=== PATIENT | male | born 1960 | race Caucasian/White ===

== ENCOUNTER 2018-07-13 14:58 | Inpatient (IN) | payer MEDICAID, OTHER ==
[~2018-07-13] VITALS: Ht 172.7 cm; Wt 85.7 kg
[~2018-07-13 14:58] MED LIST: ENAL5TAB20 PO; IND25 PO; METO-50 PO
[2018-07-13 15:05] VITALS: BP 151/96
--- NOTE | 2018-07-13 15:13 | NUR ---
TRIAGED TO LOBBY. PT VSS, NOT IN DISTRESS.
--- NOTE | 2018-07-13 17:09 | NUR ---
PATIENTS VITAL SIGNS TAKEN. PATIENT IN NO DISTRESS. COVERSING WELL.EXPLAINED PATIENT THE WAIT.WITH UNDERSTANDING
--- NOTE | 2018-07-13 18:15 | NUR ---
PATIENT PRESENTS TO ED WITH C/O LEFT UPPER EXTREMITY PAIN "DAYS" PT SEEN IN [facility] DX GOUT BUT REQUEST SECOND OPINION---DENIES RECENT INJURY +2 REDIAL PULSE <3 SEC CAP REFILL---- DENIES N/V/D; SKIN IS PINK/WARM/DRY; AAOX4 WITH EVEN AND STEADY GAIT; LUNGS CLEAR BL; HR EVEN AND REGULAR; PT DENIES ANY FEVER, CP, SOB, OR COUGH AT THIS TIME; PATIENT STATES PAIN OF 8/10 AT THIS TIME; VSS; PATIENT POSITIONED FOR COMFORT; HOB ELEVATED; BEDRAILS UP X2; BED DOWN. ER MD MADE AWARE OF PT STATUS.
--- NOTE | 2018-07-13 18:23 | NUR ---
----WARMER VS LUE ON PALPATION, TENDER WITH SLIGHTEST MOVEMENTS, VEINS DISTENDED DENIES RECENT INJURY---NO ABSCESS OR OBVIOUS CELLULITIS NOTED MD NOTIFIED
--- NOTE | 2018-07-13 18:27 | NUR ---
ULTRASOUND NOTIFIED OF VERBAL ORDER FOR ULTRASOUND ANAT
[2018-07-13] MEDS ORDERED: MORPHINE SULFATE 4 MG/ML SYR IM ONE (18:40)
[2018-07-13] MEDS ORDERED: MORPHINE SULFATE 4 MG/ML SYR IVP ONE (18:50)
--- NOTE | 2018-07-13 18:53 | NUR ---
CXR AT BEDSIDE
[2018-07-13] MEDS ORDERED: NACL 0.9% 1,000 ML IV ONE ×3 (18:55→21:00)
--- NOTE | 2018-07-13 19:01 | NUR ---
RT AT BEDSIDE , ABG
--- NOTE | 2018-07-13 19:13 | NUR ---
US AT BEDSIDE
[2018-07-13 19:22] LABS: BASOPHILS # (AUTO) 0.1 K/uL (0.00-0.22); BASOPHILS % (AUTO) 0.4 % (0.0-2.0); EOSINOPHILS # (AUTO) 0.1 K/uL (0-0.4); EOSINOPHILS % (AUTO) 0.6 % (0.0-4.0); HEMATOCRIT 43.5 % (36-52); HEMOGLOBIN 14.6 g/dL (12.0-18.0); LYMPHOCYTES # (AUTO) 1.6 K/uL (2.0-11.5); LYMPHOCYTES % (AUTO) 12.6 % (20.5-51.1); MEAN CORPUSCULAR HEMOGLOBIN 29 pg (27-31); MEAN CORPUSCULAR HGB CONC 34 g/dL (33-37); MEAN CORPUSCULAR VOLUME 86.9 fL (80-94); MONOCYTES # (AUTO) 1.2 K/uL (0.8-1.0); MONOCYTES % (AUTO) 9.3 % (1.7-9.3); NEUTROPHILS # (AUTO) 9.5 K/uL (1.8-7.7); NEUTROPHILS % (AUTO) 77.1 % (42.2-75.2); PLATELET COUNT (AUTO) 217 K/uL (140-450); RED CELL DISTRIBUTION WIDTH 14.3 % (11.6-13.7); WHITE BLOOD COUNT (AUTO) 12.4 K/uL (4.8-10.8)
[2018-07-13 19:35] LABS: ANION GAP 18.1 (8-16); CARBON DIOXIDE 21.8 mmol/L (21-32); POTASSIUM 3.9 mmol/L (3.5-5.1); PROTHROMBIN TIME 10.3 secs (10.8-13.4)
[2018-07-13 19:41] LABS: ALBUMIN 3.6 g/dL (3.4-5.0); TOTAL BILIRUBIN 0.7 mg/dL (0.0-1.0)
--- NOTE | 2018-07-13 20:28 | NUR ---
URINE COLLECTED AND PLACED IN APPROPRIATE CONTAINER
[2018-07-13] MEDS ORDERED: ACETAMINOPHEN 325 MG TAB PO ONE (20:45)
--- NOTE | 2018-07-13 20:45 | NUR ---
PATIENT STATES HE IS IN PAIN, DR SWANSON MADE AWARE, WILL CONTINUE TO MONITOR
[2018-07-13 20:59] LABS: APPEARANCE,URINE CLEAR (CLEAR); BILIRUBIN,URINE NEGATIVE (NEGATIVE); BLOOD, URINE NEGATIVE (NEGATIVE); COLOR,URINE YELLOW (YELLOW); LEUKOCYTE ESTERASE ,URINE NEGATIVE (NEGATIVE); NITRITE, URINE NEGATIVE (NEGATIVE); UGLUCOSE TRACE (NEGATIVE)
--- NOTE | 2018-07-13 21:14 | NUR ---
DR SWANSON AT BEDSIDE
[2018-07-13] MEDS ORDERED: VANCOMYCIN 1,000 MG in DEXTROSE 5% 250 ML IV ONE (21:20)
--- NOTE | 2018-07-13 21:24 | NUR ---
BRIANA NOT LOADED IN PYXIS, CALLED HOUSE SUP, MADE AWARE, WILL BRING RX TO ER
[2018-07-13] MEDS ORDERED: VANCOMYCIN 1,000 MG VIAL ONE (21:41)
[2018-07-13] MEDS ORDERED: ONDANSETRON 4 MG/2 ML VIAL IM/IVP PRN (22:05)
[2018-07-13] MEDS ORDERED: DOCUSATE SODIUM 100 MG GELCAP PO PRN (22:05)
[2018-07-13] MEDS ORDERED: HYDROcodone/APAP 7.5/325 MG 1 TAB PO PRN (22:05)
[2018-07-13] MEDS ORDERED: ACETAMINOPHEN 325 MG TAB PO PRN (22:05)
[2018-07-13] MEDS ORDERED: MORPHINE SULFATE 2 MG/ML SYR IVP PRN (22:05)
--- NOTE | 2018-07-13 22:18 | NUR ---
ADMITING PHYSCIAN AT BEDSIDE
[2018-07-13] MEDS ORDERED: VANCOMYCIN PER PHARMACY MC PRN (22:35)
[2018-07-13 22:44] LABS: BARBITURATE, URINE NEG. ng/ml (NEG <=200); BENZODIAZEPINE, URINE NEG. ng/mL (NEG <=200); CANNABINOID, URINE NEG. ng/mL (NEG <=50); COCAINE, URINE NEG. ng/mL (NEG <=300); OPIATE, URINE NEG. ng/mL (NEG <=2000); PHENCYCLIDINE SCREEN,URINE NEG. ng/mL (NEG <=25)
[2018-07-13 22:53] LABS: CHOL/HDL RATIO 5.2 (1-4.5); FREE T4 (FREE THYROXINE) 0.97 ng/dL (0.76-1.46); PHOSPHORUS 2.7 mg/dL (2.5-4.9); THYROID STIMULATING HORMONE 0.84 uIU/mL (0.34-3.74)
[2018-07-13] MEDS ORDERED: KETOROLAC 30 MG/ML VIAL IVP ONE (23:20)
[2018-07-13] MEDS ORDERED: ALLOPURINOL 100 MG TAB PO ONE (23:20)
[2018-07-13] MEDS ORDERED: KETOROLAC 15 MG/ML VIAL IVP PRN (23:20)
--- NOTE | 2018-07-13 23:20 | NUR ---
RECEIVED BEDSIDE REPORT FROM LEARNING DISABILITIES SPECIALIST. PT IS AAOX4. ON ROOM AIR. RESPIRATIONS ARE EQUAL AND UNLABORED. PT WITH IV ON RAC 20G VANCO INFUSING. SKIN INTACT. PT LEFT ARM PAIN. ARM CAP REFILL<2SEC. WARM TO THE TOUCH. PT CAN MOVE ARM AND SENSATION INTACT. LUNG SOUNDS ARE CLEAR. B/P 163/112 HR 96, 100% RA, RR 14. PLAN OF CARE DISCUSSED WITH PT. CALL LIGHT WITHIN REACH.
--- NOTE | 2018-07-13 23:23 | NUR ---
Patient will be admitted to care of DR AYALA . Admited to TELE . Will go to room 126A. Belongings list completed. Report to AMA.
[2018-07-13] MEDS ORDERED: ENALAPRIL 10 MG TAB PO ONE (23:50)
--- NOTE | 2018-07-13 23:56 | NUR ---
DUE MEDICATIONS GIVEN. PT TOLERATED WELL. PT CLEANED AND CHANGED INTO NEW GOWN. CALL LIGHT WITHIN REACH
[2018-07-14] VITALS: BP 163/112
[2018-07-14] MEDS ORDERED: methylPREDNISolone SS 40 MG/ML VIAL IVP ONE
--- NOTE | 2018-07-14 00:27 | NUR ---
PT EATING COMFORTABLY IN BED. NO S/S OF DISTRESS. CALL LIGHT WITHIN REACH.
--- NOTE | 2018-07-14 01:58 | NUR ---
PT SLEEPING COMFORTABLY IN BED. NO S/S OF DISTRESS. SAFETY MEASURES ARE IN PLACE. CALL LIGHT WITHIN REACH.
[2018-07-14 04:00] VITALS: BP 137/81
--- NOTE | 2018-07-14 04:25 | NUR ---
VITAL SIGNS ARE STABLE. ASSISTED PT TO RESTROOM. ALL NEEDS MET AT THIS TIME. CALL LIGHT WITHIN REACH.
[2018-07-14 06:28] LABS: ANION GAP 15.7 (8-16); CARBON DIOXIDE 22.2 mmol/L (21-32); POTASSIUM 3.9 mmol/L (3.5-5.1)
--- NOTE | 2018-07-14 07:21 | NUR ---
GAVE BEDSIDE REPORT TO DAY SHIFT RN. PT ENDORSED IN STABLE CONDITION.
--- NOTE | 2018-07-14 07:22 | NUR ---
RECEIVED BEDSIDE REPORT FROM CATEGORY DEVELOPMENT ANALYST NURSE. PATIENT IS AWAKE, ALERT AND ORIENTEDX4. NO SIGNS OF DISTRESS ON RA. SKIN IS INTACT. IV ON R AC 20G INFUSING NS AT 60. CLEAN, DRY AND INTACT. FALL RISK PROTOCOL IN PLACE D/T WEAKNESS. WALKS W CANE AT HOME. BED IN LOW POSITION. PATIENT IS CONTINENT. URINAL AT BEDSIDE. CALL LIGHT WITHIN REACH. WILL CONTINUE TO MONITOR THE PATIENT
[2018-07-14] MEDS ORDERED: LACTULOSE 20 GM/30 ML UDC PO SCH (07:32)
[2018-07-14 07:36] LABS: BASOPHILS % (AUTO) 0.2 % (0.0-2.0); EOSINOPHILS % (AUTO) 0.1 % (0.0-4.0); HEMATOCRIT 42.3 % (36-52); HEMOGLOBIN 14.4 g/dL (12.0-18.0); LYMPHOCYTES # (AUTO) 0.7 K/uL (2.0-11.5); LYMPHOCYTES % (AUTO) 5.5 % (20.5-51.1); MEAN CORPUSCULAR HEMOGLOBIN 30 pg (27-31); MEAN CORPUSCULAR HGB CONC 34 g/dL (33-37); MEAN CORPUSCULAR VOLUME 87.6 fL (80-94); MONOCYTES # (AUTO) 0.3 K/uL (0.8-1.0); MONOCYTES % (AUTO) 2.6 % (1.7-9.3); NEUTROPHILS # (AUTO) 11.6 K/uL (1.8-7.7); NEUTROPHILS % (AUTO) 91.6 % (42.2-75.2); PLATELET COUNT (AUTO) 203 K/uL (140-450); RED BLOOD CELL COUNT(AUTO) 4.83 MIL/uL (4.20-6.10); WHITE BLOOD COUNT (AUTO) 12.7 K/uL (4.8-10.8)
[2018-07-14 08:00] VITALS: BP 142/83
--- NOTE | 2018-07-14 08:19 | NUR ---
PATIENT HAS BEEN SCREENED AND CATEGORIZED MODERATE NUTRITION RISK. PATIENT WILL BE SEEN WITHIN 3-5 DAYS OF ADMISSION. 07/17/18FABIENNE DEJ[address]
[2018-07-14] MEDS: ALLOPURINOL 300 MG TAB PO SCH (08:37)
[2018-07-14] MEDS: METOPROLOL 50 MG TAB PO SCH ×2 (08:38→20:32)
[2018-07-14] MEDS: INDOMETHACIN 25 MG CAP PO SCH ×2 (08:39→20:33)
[2018-07-14] MEDS: ENALAPRIL 5 MG TAB PO SCH ×2 (08:39)
[2018-07-14] MEDS: LACTOBACILLUS RHAMNOSUS GG 1 EACH CAP PO SCH (08:39)
--- NOTE | 2018-07-14 08:42 | NUR ---
ADMINISTERED MEDS. PATIENT TOLERATED WELL. EDUCATED PATIENT ON SIDE EFFECTS. PATIENT VERBALIZED UNDERSTANDING. CALL LIGHT WITHIN REACH. PATIENT IS ABLE TO MAKE NEEDS KNOWN.
[2018-07-14] MEDS ORDERED: METOPROLOL 50 MG TAB PO SCH (09:00)
--- NOTE | 2018-07-14 10:00 | NUR ---
PATIENT AMBULATED TO THE RESTROOM W ASSISTANCE. HE SAID HE HAD A SMALL BM. PATIENT BACK INTO BED. CALL LIGHT WITHIN REACH. WILL CONTINUE TO MONITOR
--- NOTE | 2018-07-14 11:49 | NUR ---
PATIENT IS SLEEPING. NO SIGNS OF DISTRESS. WILL CONTINUE TO MONITOR THE PATIENT
[2018-07-14 12:00] VITALS: BP 168/88
--- NOTE | 2018-07-14 12:30 | NUR ---
DR BRAVO IS AWARE OF B/P 168/88 HR 71.
--- NOTE | 2018-07-14 13:30 | NUR ---
PATIENT AMBULATED TO THE RESTROOM W ASSISTANCE. WILL CALL FOR ASSISTANCE BACK TO THE BED.
--- NOTE | 2018-07-14 14:26 | NUR ---
PATIENT STATES HE FEELS LIKE HIS LEGS ARE WEAKER AND ITS HARD TO WALK NOW. WILL TELL DR BRAVO. PATIENT CURRENTLY MOVING LEGS AT THIS TIME.
--- NOTE | 2018-07-14 14:43 | NUR ---
DR BRAVO SAID SHE WILL ORDER PT FOR HIM. PATIENT IS AWARE
--- NOTE | 2018-07-14 15:24 | NUR ---
PATIENT LAYING IN BED. NO SIGNS OF DISTRESS. WILL CONTINUE TO MONITOR THE PATIENT.
[2018-07-14 16:00] VITALS: BP 144/83
--- NOTE | 2018-07-14 16:52 | NUR ---
PATIENT LAYING IN BED. REMOVED TELE MONITOR, PATIENT NOW ON MED SURGE. WILL CONTINUE TO MONITOR THE PATIENT
[2018-07-14] MEDS ORDERED: ATORVASTATIN 20 MG TAB PO SCH (17:00)
[2018-07-14] MEDS: NACL 0.9% 1,000 ML IV SCH ×2 (17:44)
--- NOTE | 2018-07-14 17:48 | NUR ---
ADMINISTERED REY MED AND IVF. PATIENT EDUCATED ON SIDE EFFECTS. TOLERATED WELL. NO SIGNS OF DISTRESS. ABLE TO MAKE NEEDS KNOWN. WILL CONTINUE TO MONITOR THE PATIENT
--- NOTE | 2018-07-14 19:04 | NUR ---
GAVE BEDSIDE REPORT TO TRACTOR TRAILER TECHNICIAN NURSE. PATIENT ENDORSED IN STABLE CONDITION
--- NOTE | 2018-07-14 19:10 | NUR ---
RECEIVED BEDSIDE REPORT FROM NERI GOYAL. PT IS AAO X4. ON ROOM AIR. RESPIRATIONS ARE EQUAL AND UNLABORED. IV ON R AC 20G NS INFUSING AT 60. L ARM SWELLING AND WARM TO THE TOUCH. PT ABLE TO MOVE HAND BUT HAS PAIN WITH MOVEMENT. ARM IS SWOLLEN NON PITTING. OTHERWISE SKIN INTACT. PT USES URINAL. ON FALL PRECAUTION. PLAN OF CARE DISCUSSED. CALL LIGHT WITHIN REACH. BED ALARM ON AND LOWEST POSITION. WILL CONTINUE TO MONITOR.
--- NOTE | 2018-07-14 20:33 | NUR ---
B/P 143/80 HR 70. LOPRESSOR ADMINISTERED PER ORDERS. ALL DUE MEDICATIONS GIVEN. PT TOLERATED WELL. ALL NEEDS MET AT THIS TIME.
--- NOTE | 2018-07-14 21:40 | NUR ---
ASSISTED PT TO RESTROOM. GAIT IS STEADY DENIES ANY SOB. ALL NEEDS MET AT THIS TIME. CALL LIGHT WITHIN REACH.
--- NOTE | 2018-07-14 23:00 | NUR ---
GAVE BEDSIDE REPORT TO BILLY KIRAN. PT ENDORSED IN STABLE CONDITION.
--- NOTE | 2018-07-14 23:15 | NUR ---
RECEIVED REPORT FROM BILLY REDD.PT'S CONDITION IS STABLE .IVF IS IN PROGRESS.CALL LIGHT IN REACH.NO C/O PAIN NOW WILL CONTINUE MONITORING.
[2018-07-15] VITALS: BP 135/80
[2018-07-15] MEDS ORDERED: INFLUENZA VIRUS VACCINE QUAD 0.5 ML SYR IMVAC PRN (03:10)
--- NOTE | 2018-07-15 05:41 | NUR ---
SLEPT WELL.NO S/S OF ANY DISTRESS NOTED.CALL LIGHT WITHIN REACH.IVF IS IN PROGRESS.NO C/O PAIN AT PRESENT TIME.
[2018-07-15 06:51] LABS: BASOPHILS % (AUTO) 0.2 % (0.0-2.0); EOSINOPHILS # (AUTO) 0.1 K/uL (0-0.4); EOSINOPHILS % (AUTO) 0.7 % (0.0-4.0); HEMATOCRIT 38.6 % (36-52); HEMOGLOBIN 13.3 g/dL (12.0-18.0); LYMPHOCYTES # (AUTO) 2.1 K/uL (2.0-11.5); LYMPHOCYTES % (AUTO) 16.9 % (20.5-51.1); MEAN CORPUSCULAR HEMOGLOBIN 30 pg (27-31); MEAN CORPUSCULAR HGB CONC 35 g/dL (33-37); MEAN CORPUSCULAR VOLUME 85.9 fL (80-94); MONOCYTES # (AUTO) 0.7 K/uL (0.8-1.0); MONOCYTES % (AUTO) 5.9 % (1.7-9.3); NEUTROPHILS # (AUTO) 9.4 K/uL (1.8-7.7); NEUTROPHILS % (AUTO) 76.3 % (42.2-75.2); PLATELET COUNT (AUTO) 181 K/uL (140-450); RED BLOOD CELL COUNT(AUTO) 4.49 MIL/uL (4.20-6.10); RED CELL DISTRIBUTION WIDTH 14.7 % (11.6-13.7); WHITE BLOOD COUNT (AUTO) 12.3 K/uL (4.8-10.8)
[2018-07-15 07:06] LABS: MAGNESIUM 1.8 mg/dL (1.8-2.4); PHOSPHORUS 3.2 mg/dL (2.5-4.9)
[2018-07-15] MEDS: NACL 0.9% 1,000 ML IV SCH (07:22)
--- NOTE | 2018-07-15 07:25 | NUR ---
RECEIVED REPORT FROM PM NURSE . PT ADMITTED FOR LFT HAND CELLULITIS. HAS RT HAND IV ACCESS , NS IVF INFUSING WELL 60 ML/HR. NO OPEN WOUND. VISITED PT AT HIS BEDSIDE. DENIES ANY PAIN AT THIS TIME. INTRODUCED SELF AND UPDATED BOARD. NO SIGN OF DISTRESS NOTED. CALLLIGHT WITHIN PT REACH. INFORMED TO USE CALL LIGHT FOR ANY HELP. WILL CONTINUE TO MONITOR PT.
[2018-07-15 08:00] VITALS: BP 157/103
[2018-07-15 08:12] LABS: ANION GAP 14.4 (8-16); CARBON DIOXIDE 22.6 mmol/L (21-32); CREATININE 0.8 mg/dL (0.7-1.3)
[2018-07-15] MEDS ORDERED: MORPHINE SULFATE 2 MG/ML SYR IVP PRN (08:12)
[2018-07-15] MEDS ORDERED: ENALAPRIL 10 MG TAB PO SCH (08:12)
[2018-07-15] MEDS: INDOMETHACIN 25 MG CAP PO SCH (08:39)
[2018-07-15] MEDS: ALLOPURINOL 300 MG TAB PO SCH (08:41)
[2018-07-15] MEDS: LACTOBACILLUS RHAMNOSUS GG 1 EACH CAP PO SCH (08:42)
[2018-07-15] MEDS: METOPROLOL 50 MG TAB PO SCH (08:43)
--- NOTE | 2018-07-15 08:52 | NUR ---
ADMINISTERED MEDS TO PT BY STUDENT NURSE AT THE BEDSIDE. PT OKAY WITH IT. TOLERATED MEDS WELL. NO SIGN OF DISTRESS NOTED FIXED HIS IV , INFUSING WELL. NO SIGN OF DISTRESS NOTED. WILL CONTINUE TO MONITOR PT.
[2018-07-15] MEDS ORDERED: ALLO100T21 PO (10:10)
[2018-07-15] MEDS ORDERED: ATOR10TA PO (11:05)
--- NOTE | 2018-07-15 12:45 | NUR ---
PT PROVIDED WITH THE DISCHARGE INSTRUCTION AND THE PAPER WORK. PTIveth SMITH PROVIDED WITH THE PAPER WORK FOR HIS PCP PROVIDED BY RESIDENT. EDUCATED PT ON EATING FOOD LOW IN PROTEIN. LITERATURE PROVIDED . PT VERBALIZED UNDERSTANDING. STABLE AND ABLE TO COMMUNICATE. PT COMFORTABLE. WILL CONFIRM THE DATE OF APPOINT BEFORE [PT LEAVES. PT ADMINISTERED FLU SHOT TODAY ORDERED.
--- NOTE | 2018-07-15 14:00 | NUR ---
PT WENT HOME WITH ALL HIS BELONGINGS ANS THE DISCHARGE PACKET. PT STABLE AND ABLE TO COMMUNICATE , AMBULATE GOOD.
== END 2018-07-15 13:30 | disposition home or self-care (01) | DRG 554 ==
LOC: MED 14:58 → MMU 22:02
PROVIDERS: ADMIT General Practice; ATTEND General Practice
DX: M10.9 Gout, unspecified (principal); E78.2 Mixed hyperlipidemia; I10 Essential (primary) hypertension; K72.90 Hepatic failure, unspecified without coma; Z79.899 Other long term (current) drug therapy; Z88.6 Allergy status to analgesic agent; Z83.3 Family history of diabetes mellitus; Z82.49 Family history of ischemic heart disease and other diseases of the circulatory system; Z23 Encounter for immunization
CPT/HCPCS: 36415; 36600; 71045; 73110; 80048; 80053; 80305; 81003; 82140; 82550; 82553; 82803; 83036; 83605; 83735; 83874; 83880; 84100; 84439; 84443; 84484; 84550; 85025; 85610; 85730; 87040; 87081; 87086; 93005; 93922; 93930; 93971; 96361; 96365; 96375; 97116; 99285; J1885; J2270; J2920; J3370; J7030; Q0092

== ENCOUNTER 2018-08-10 23:27 | Inpatient (IN) | payer OTHER ==
[~2018-08-10] VITALS: Ht 172.7 cm; Wt 84.8 kg
[~2018-08-10 23:27] MED LIST changes: +ALLO100T21 PO; +ATOR10TA PO
[2018-08-10 23:33] VITALS: BP 177/95
--- NOTE | 2018-08-10 23:39 | NUR ---
AMBULATED TO ER BED 2
--- NOTE | 2018-08-10 23:57 | NUR ---
PT PRESENTS TO ED WITH C/P INTERMITTENT CHEST PAIN RADIATING TO LEFT ARM X 2 HOURS, AND WEAKNESS IN LEGS. PT DENIES SOB AT THIS TIME. CARDIAC ASSESSMENT WNL. NO OBVIOUS DISTRESS NOTED. EKG PERFORMED AT BEDSIDE. PT PLACED INTO BED, PENDING MD [place]. HX: HTN, HLD
[2018-08-11] MEDS ORDERED: ASPIRIN 325 MG TAB PO ONE (00:25)
[2018-08-11 00:47] LABS: BASOPHILS % (AUTO) 0.5 % (0.0-2.0); EOSINOPHILS # (AUTO) 0.1 K/uL (0-0.4); EOSINOPHILS % (AUTO) 1.7 % (0.0-4.0); HEMOGLOBIN 14.2 g/dL (12.0-18.0); LYMPHOCYTES # (AUTO) 1.8 K/uL (2.0-11.5); LYMPHOCYTES % (AUTO) 23.8 % (20.5-51.1); MEAN CORPUSCULAR HEMOGLOBIN 30 pg (27-31); MEAN CORPUSCULAR HGB CONC 34 g/dL (33-37); MEAN CORPUSCULAR VOLUME 87.8 fL (80-94); MONOCYTES # (AUTO) 0.5 K/uL (0.8-1.0); MONOCYTES % (AUTO) 7.1 % (1.7-9.3); NEUTROPHILS % (AUTO) 66.9 % (42.2-75.2); PLATELET COUNT (AUTO) 190 K/uL (140-450); RED BLOOD CELL COUNT(AUTO) 4.79 MIL/uL (4.20-6.10); RED CELL DISTRIBUTION WIDTH 14.6 % (11.6-13.7); WHITE BLOOD COUNT (AUTO) 7.5 K/uL (4.8-10.8)
[2018-08-11 01:20] LABS: CREATINE KINASE MB 1.2 ng/mL (0-3.6)
[2018-08-11 01:25] LABS: ANION GAP 13.6 (8-16); CARBON DIOXIDE 26.3 mmol/L (21-32); POTASSIUM 3.9 mmol/L (3.5-5.1)
[2018-08-11 01:26] LABS: ALBUMIN 3.7 g/dL (3.4-5.0)
[2018-08-11] MEDS ORDERED: NITROGLYCERIN 0.4 MG TAB SL ONE (01:45)
--- NOTE | 2018-08-11 01:45 | NUR ---
IV START: R AC 18G, FLUSHED WELL W/O RESISTANCE. NO REDNESS OR SWELLING NOTED. TRANPARENT DRESSING APPLIED. PT TOLERATED WELL.
[2018-08-11] MEDS ORDERED: HEPARIN PER PHARMACY MC STA (01:54)
[2018-08-11] MEDS ORDERED: hePARIN / DEXT 5% PREMIX 250 ML IV ONE (01:55)
[2018-08-11] MEDS ORDERED: LORazepam 2 MG/ML VIAL IM/IVP PRN (02:05)
[2018-08-11] MEDS ORDERED: ACETAMINOPHEN 325 MG TAB PO PRN (02:05)
[2018-08-11] MEDS ORDERED: MORPHINE SULFATE 2 MG/ML SYR IVP PRN (02:05)
[2018-08-11] MEDS ORDERED: HYDROcodone/APAP 5/325 MG 1 TAB TAB PO PRN (02:05)
[2018-08-11] MEDS ORDERED: ONDANSETRON 4 MG/2 ML VIAL IM/IVP PRN (02:05)
[2018-08-11] MEDS ORDERED: ZOLPIDEM 5 MG TAB PO PRN (02:05)
[2018-08-11] MEDS ORDERED: DOCUSATE SODIUM 100 MG GELCAP PO PRN (02:05)
[2018-08-11 02:20] LABS: PROTHROMBIN TIME 10.4 secs (10.8-13.4)
[2018-08-11 02:40] VITALS: BP 152/94
--- NOTE | 2018-08-11 02:40 | NUR ---
ADMITTED A 57M FROM ER. CAME BY CLAYTON . WITH SLIGHT DIFFICULTY AMBULATION. AWAKE,ALERT AND ORIENTED X4. ON TELE MONITOR . PT CAME WITH HEPARIN DRIP INFUSING ON THE RT AC G#18. CLEAR AND PATENT. [place] ORIENTED TO HOSPITAL ROUTINES, BED ON LOW POSITION. SIDE RAILS UP X2, CALL LIGHT AND URINAL WITHIN EASY REACH. PLAN OF CARE DISCUSSED AND VERBALIZED UNDERSTANDING. WILL CONTINUE TO MONITOR.
--- NOTE | 2018-08-11 02:47 | NUR ---
Patient will be admitted to care of DR AYALA. Admited to TELE. Will go to room 105-A. Belongings list completed. Report to JYOTSNA KAISER.
[2018-08-11 02:57] LABS: MAGNESIUM 1.9 mg/dL (1.8-2.4); PHOSPHORUS 4.2 mg/dL (2.5-4.9); THYROID STIMULATING HORMONE 1.82 uIU/mL (0.34-3.74)
[2018-08-11] MEDS ORDERED: NITROGLYCERIN 0.4 MG TAB SL PRN (03:00)
[2018-08-11 03:21] LABS: APPEARANCE,URINE CLEAR (CLEAR); BILIRUBIN,URINE NEGATIVE (NEGATIVE); BLOOD, URINE 1+ (NEGATIVE); COLOR,URINE YELLOW (YELLOW); LEUKOCYTE ESTERASE ,URINE NEGATIVE (NEGATIVE); NITRITE, URINE NEGATIVE (NEGATIVE); PH,URINE 5.5 (5.0-9.0); UGLUCOSE NEGATIVE (NEGATIVE)
[2018-08-11 04:03] LABS: BARBITURATE, URINE NEGATIVE ng/ml (NEG <=200); BENZODIAZEPINE, URINE NEGATIVE ng/mL (NEG <=200); CANNABINOID, URINE NEGATIVE ng/mL (NEG <=50); COCAINE, URINE NEGATIVE ng/mL (NEG <=300); OPIATE, URINE NEGATIVE ng/mL (NEG <=2000); PHENCYCLIDINE SCREEN,URINE NEGATIVE ng/mL (NEG <=25)
[2018-08-11] MEDS ORDERED: INSULIN LISPRO SLIDING SCALE 100 UNITS/ML VIAL SUBQ PRN (04:30)
[2018-08-11] MEDS ORDERED: DEXTROSE 50% 50 ML SYR IVP PRN (04:30)
--- NOTE | 2018-08-11 05:00 | NUR ---
STARTED A NEW IV ACCESS ON THE R RT HAND G#22, CLEAR AND PATENT FOR THE MAIN IVF NS @60 ML /HR.
[2018-08-11] MEDS: NACL 0.9% 1,000 ML IV SCH ×2 (05:05→19:28)
[2018-08-11] MEDS: BLOOD GLUCOSE MONITORING 1 DEV DEV FS SCH ×4 (06:00→20:15)
--- NOTE | 2018-08-11 06:00 | NUR ---
BLOOD SUGAR WAS CHECKED RESULT 103. NO INSULIN NEEDED.
[2018-08-11 06:04] VITALS: BP 128/78
[2018-08-11 06:50] LABS: BASOPHILS % (AUTO) 0.4 % (0.0-2.0); EOSINOPHILS # (AUTO) 0.1 K/uL (0-0.4); EOSINOPHILS % (AUTO) 1.9 % (0.0-4.0); HEMATOCRIT 39.9 % (36-52); HEMOGLOBIN 13.7 g/dL (12.0-18.0); LYMPHOCYTES % (AUTO) 29.4 % (20.5-51.1); MEAN CORPUSCULAR HEMOGLOBIN 30 pg (27-31); MEAN CORPUSCULAR HGB CONC 34 g/dL (33-37); MEAN CORPUSCULAR VOLUME 86.8 fL (80-94); MONOCYTES # (AUTO) 0.5 K/uL (0.8-1.0); MONOCYTES % (AUTO) 7.9 % (1.7-9.3); NEUTROPHILS # (AUTO) 4.2 K/uL (1.8-7.7); NEUTROPHILS % (AUTO) 60.4 % (42.2-75.2); PLATELET COUNT (AUTO) 174 K/uL (140-450); RED CELL DISTRIBUTION WIDTH 14.4 % (11.6-13.7)
--- NOTE | 2018-08-11 07:05 | NUR ---
ENDORSED PT TO AM NURSE BYRNE IN STABLE CONDITION.
--- NOTE | 2018-08-11 07:10 | NUR ---
RECEIVED HAND OFF REPORT FROM ICU MANAGER NURSE PATIENT IS STABLE AND IN NO APPARENT DISTRESS. ALL SAFETY MEASURES ARE IN PLACE. WILL CONTINUE TO MONITOR.
[2018-08-11 07:45] LABS: ANION GAP 9.9 (8-16); CARBON DIOXIDE 24.6 mmol/L (21-32); CREATININE 0.9 mg/dL (0.7-1.3); POTASSIUM 3.5 mmol/L (3.5-5.1)
--- NOTE | 2018-08-11 08:31 | NUR ---
PATIENT HAS BEEN SCREENED AND CATEGORIZED HIGH NUTRITION RISK. PATIENT WILL BE SEEN WITHIN 1-2 DAYS OF ADMISSION. 08/11/18-08/12/[address]
[2018-08-11] MEDS: ALLOPURINOL 100 MG TAB PO SCH (08:40)
[2018-08-11] MEDS: INDOMETHACIN 25 MG CAP PO SCH ×2 (08:40→20:10)
[2018-08-11] MEDS ORDERED: ENALAPRIL 5 MG TAB PO SCH (09:00)
--- NOTE | 2018-08-11 09:15 | NUR ---
FREQUENT ROUNDING PT IS STABLE AND IN NO APPARENT DISTRESS. ASSISTED PT TO BATH ROOM. PT IS BACK IN BED STABLE AND IN NO APPARENT DISTRESS. ALL SAFETY MEASURES ARE IN PLACE. WILL CONTINUE TO MONITOR.
[2018-08-11] MEDS ORDERED: hePARIN / DEXT 5% PREMIX 250 ML IV SCH (10:15)
[2018-08-11] MEDS ORDERED: HEPARIN PER PHARMACY MC PRN (10:25)
[2018-08-11] MEDS: hePARIN / DEXT 5% PREMIX 250 ML IV SCH ×2 (11:47→19:48)
--- NOTE | 2018-08-11 11:54 | NUR ---
PTT 42.5. PT SHOWS NO SIGNS OF BLEEDING OR BRUISING. INCREASED HEPARIN DRIP TO 1150 AND GAVE HEPARIN BOLUS 2200 UNITS. COSIGNED BY CHARGE NURSE. PT IS STABLE AND IN NO APPARENT DISTRESS. FALL RISK PROTOCOL IS IN PLACE. ALL SAFETY MEASURES ARE IN PLACE. WILL CONTINUE TO MONITOR. Addendum: 08/11/18 at 1158 by Ruby Cornelius RN IV PUMP LOCKED PER UNIT MANAGERS REQUEST
[2018-08-11 12:00] VITALS: BP 152/83
[2018-08-11 12:28] LABS: CHOL/HDL RATIO 3.9 (1-4.5)
--- NOTE | 2018-08-11 13:45 | NUR ---
FREQUENT FOUNDING ON PT PT IS STABLE AND IN NO APPARENT DISTRESS. ALL SAFETY MEASURES ARE IN PLACE. WILL CONTINUE TO MONITOR.
--- NOTE | 2018-08-11 14:45 | NUR ---
08/11/18 RD INITIAL ASSESSMENT COMPLETED PLEASE REFER TO NUTRITION ASSESSMENT UNDER CARE ACTIVITY FOR ESTIMATED NUTRITIONAL NEEDS. 1. CONTINUE CARDIAC AND CCHO 60 GM DIET TOLERATED 2. RD PROVIDED EDUCATION FOR HYPERTENSION AND CONSISTENT CARBOHYDRATE COUNT. PT ACCEPTED EDUCATION 3. RD TO FOLLOW-UP 5-7 DAYS, LOW RISK FABIENNE DEJESUS, RD
--- NOTE | 2018-08-11 15:17 | NUR ---
NOTIFIED DR. SHAFFER AND DR. GOMEZ ON CRITICAL ECHO FINDINGS
--- NOTE | 2018-08-11 15:20 | NUR ---
PT IS STABLE NO SIGNS OF BLEEDING. NO SIGNS OF DISTRESS, ALL SAFETY MEASURES ARE IN PLACE. WILL CONTINUE TO MONITOR.
[2018-08-11 16:00] VITALS: BP 149/92
--- NOTE | 2018-08-11 16:58 | NUR ---
FINGER STICK BLOOD GLUCOSE 123. NO INSULIN NEEDED.
--- NOTE | 2018-08-11 19:28 | NUR ---
HAND OFF REPORT GIVEN TO SUPERVISOR SHUTTLE VENEERING NURSE. PT IS STABLE AND IN NO APPARENT DISTRESS. IV FLUSHING AND PATENT. ALL SAFETY MEASURES ARE IN PLACE.
--- NOTE | 2018-08-11 19:29 | NUR ---
RECEIVED PT IN STABLE CONDITION FORM AM NURSE. TELEMETRY PT. AWAKE,ALERT AND ORIENTED X4. NO C/O PAIN NOR DISCOMFORT AT THIS TIME. WITH HEPARIN DRIP INFUSING ON THE RT AC G#18. CLEAR AND PATENT. CORMIER IVF INFUSING ON ANOTHER LINE RT HAND G#22. PLAN OF CARE DISCUSSED AND VERBALIZED UNDERSTANDING. BED ON LOW POSITION. ALARM ON DUE TO WEAKNESS . SIDE RAILS UP X2. CALL LIGHT AND URINAL PLACED WITHIN EASY REACH. INSTRUCTED TO CALL BEFORE GETTING UP TO BATHROOM. WILL CONTINUE TO MONITOR.
--- NOTE | 2018-08-11 19:46 | NUR ---
LAB CALLED FOR CRITICAL PTT 61.9 . PER HEPARIN PROTOCOL NO CHANGE ON THE RATE.
[2018-08-11 20:07] VITALS: BP 157/87
[2018-08-11] MEDS: ATORVASTATIN 20 MG TAB PO SCH (20:10)
[2018-08-11] MEDS: METOPROLOL 50 MG TAB PO SCH (20:10)
--- NOTE | 2018-08-11 20:15 | NUR ---
BLOOD SUGAR WAS CHECKED RESULT 125. NO INSULIN NEEDED. PT HAD SOME SNACK.
--- NOTE | 2018-08-11 21:54 | NUR ---
DR. GOMEZ CAME AND SEEN PT. DISCUSSED ABOUT PT CONDITION. DR. BARNETT,RESIDENT MD ALSO WITH PT. DR. GOMEZ SAID TO DISCONTINUE HEPARIN DRIP.
--- NOTE | 2018-08-11 23:00 | NUR ---
MADE ROUNDS PT IS ASLEEP. NO S/S O ANY DISCOMFORT NOTED.
[2018-08-12 00:12] VITALS: BP 136/82
--- NOTE | 2018-08-12 01:51 | NUR ---
MADE ROUNDS. PT IS ASLEEP. WITH NO S/S OF ANY DISCOMFORT/PAIN NOTED.
[2018-08-12] MEDS: NACL 0.9% 1,000 ML IV SCH ×2 (02:59→12:08)
[2018-08-12 03:30] VITALS: BP 142/88
--- NOTE | 2018-08-12 04:30 | NUR ---
PT SLEPT WELL DURING THE NIGHT. NO DISTRESS NOR PAIN NOTED.
[2018-08-12] MEDS: BLOOD GLUCOSE MONITORING 1 DEV DEV FS SCH ×4 (06:02→21:04)
--- NOTE | 2018-08-12 06:02 | NUR ---
BLOOD SUGAR WAS CHECKED RESULT 92.
--- NOTE | 2018-08-12 07:25 | NUR ---
ENDORSED PT IN STABLE CONDITION TO AM NURSE FOR CONTINUITY OF CARE.
--- NOTE | 2018-08-12 07:30 | NUR ---
RECEIVED HANDOFF REPORT TO BUFFERER NURSE. PT IS AWAKE IN BED. PT IS STABLE AND IN NO APPARENT DISTRESS. ALL SAFETY MEASURES ARE IN PLACE. WILL CONTINUE TO MONITOR.
[2018-08-12 08:00] VITALS: BP 153/91
[2018-08-12 08:04] LABS: BASOPHILS % (AUTO) 0.5 % (0.0-2.0); EOSINOPHILS # (AUTO) 0.1 K/uL (0-0.4); EOSINOPHILS % (AUTO) 1.9 % (0.0-4.0); HEMOGLOBIN 13.2 g/dL (12.0-18.0); LYMPHOCYTES # (AUTO) 1.9 K/uL (2.0-11.5); LYMPHOCYTES % (AUTO) 33.1 % (20.5-51.1); MEAN CORPUSCULAR HEMOGLOBIN 30 pg (27-31); MEAN CORPUSCULAR HGB CONC 35 g/dL (33-37); MEAN CORPUSCULAR VOLUME 87.1 fL (80-94); MONOCYTES # (AUTO) 0.4 K/uL (0.8-1.0); NEUTROPHILS # (AUTO) 3.3 K/uL (1.8-7.7); NEUTROPHILS % (AUTO) 57.5 % (42.2-75.2); PLATELET COUNT (AUTO) 163 K/uL (140-450); RED BLOOD CELL COUNT(AUTO) 4.36 MIL/uL (4.20-6.10); RED CELL DISTRIBUTION WIDTH 14.2 % (11.6-13.7); WHITE BLOOD COUNT (AUTO) 5.7 K/uL (4.8-10.8)
[2018-08-12 08:29] LABS: ANION GAP 12.2 (8-16); CARBON DIOXIDE 25.7 mmol/L (21-32); CREATININE 0.9 mg/dL (0.7-1.3); POTASSIUM 3.9 mmol/L (3.5-5.1)
[2018-08-12 08:39] LABS: MAGNESIUM 1.8 mg/dL (1.8-2.4); PHOSPHORUS 3.1 mg/dL (2.5-4.9)
[2018-08-12] MEDS: ALLOPURINOL 100 MG TAB PO SCH (09:12)
[2018-08-12] MEDS: INDOMETHACIN 25 MG CAP PO SCH ×2 (09:12→21:00)
[2018-08-12] MEDS: ENALAPRIL 10 MG TAB PO SCH (09:13)
--- NOTE | 2018-08-12 09:15 | NUR ---
FREQUENT ROUNDING PT IS STABLE AND IN NO APPARENT DISTRESS ALL SAFETY MEASURES ARE IN PLACE. WILL CONTINUE TO MONITOR.
--- NOTE | 2018-08-12 10:47 | NUR ---
MEDICAL STUDENTS WORKING WITH PATIENT TEACHING HIM PROPER STRETCHING TECHNIQUE FOR LEG STRETCHES
--- NOTE | 2018-08-12 11:20 | NUR ---
FREQUENT ROUNDING PT IS AWAKE IN BED, PT APPEARS STABLE AND IN NO APPARENT DISTRESS. ALL SAFETY MEASURES ARE IN PLACE. IVF IS INFUSING. IV SITE IS PATENT AND SHOWS NO SIGNS OF INFILTRATION OR INFLAMMATION. WILL CONTINUE TO MONITOR.
--- NOTE | 2018-08-12 11:30 | NUR ---
FINGERSTICK GLUCOSE 104 NO INSULIN NEEDED PER SLIDING SCALE. PT APPEARS STABLE AND IN NO APPARENT DISTRESS. ALL SAFETY MEASURES ARE IN PLACE , WILL CONTINUE TO MONITOR.
[2018-08-12 12:00] VITALS: BP 136/88
--- NOTE | 2018-08-12 13:05 | NUR ---
FREQUENT ROUNDING PT IS ASLEEP. NOTABLE CHEST RISE AND FALL. PT APPEARS STABLE AND IN NO APPARENT DISTRESS. ALL SAFETY MEASURES ARE IN PLACE. WILL CONTINUE TO MONITOR.
--- NOTE | 2018-08-12 15:22 | NUR ---
FREQUENT ROUNDING. PT IS ASLEEP, NOTABLE CHEST RISE AND FALL. PT APPEARS STABLE AND IN NO APPARENT DISTRESS. ALL SAFETY MEASURES ARE IN PLACE. IVF IS INFUSING. IV SITE SHOWS NO SIGNS OF INFILTRATION OR INFLAMMATION. WILL CONTINUE TO MONITOR.
[2018-08-12 16:00] VITALS: BP 146/86
--- NOTE | 2018-08-12 16:30 | NUR ---
FINGERSTICK GLUCOSE 109. NO COVERAGE NEEDED PT IS AWAKE IN BED, PT APPEARS STABLE AND IN NO APPARENT DISTRESS. ALL SAFETY MEASURES ARE IN PLACE. WILL CONTINUE TO MONITOR.
--- NOTE | 2018-08-12 18:33 | NUR ---
FREQUENT ROUNDING PT IS STABLE AND IN BED. ASSISTED PT TO BATHROOM. ALL SAFETY MEASURES ARE IN PLACE WILL CONTINUE TO MONITOR. IVF INFUSING IV SITE SHOWS NO SIGNS OF INFILTRATION OR INFLAMMATION
--- NOTE | 2018-08-12 19:36 | NUR ---
ENDORSED PT TO RESEARCH COORDINATOR NURSE PATIENT IS AWAKE IN BED, PT APPEARS STABLE AND IN NO APPARENT DISTRESS. ALL SAFETY MEASURES ARE IN PLACE. NS AT 60 IV SITE IS PATENT AND SHOWS NO SIGN OF INFLAMMATION OR INFILTRATION.
--- NOTE | 2018-08-12 19:37 | NUR ---
RECEIVED REPORT FROM DAY SHIFT NURSE. AAOX4. NO C/O PAIN OR SOB. ON ROOM AIR. SKIN INTACT. IV TO RIGHT AC #18G, NS AT 60 ML/HR INFUSING WELL AND IV RIGHT HAND #22G, SALINE LOCK. DISCUSSES PLAN OF CARE, PT VERBALIZED UNDERSTANDING. SAFETY PRECAUTION IN PLACE. CALL LIGHT WITHIN REACH.
[2018-08-12 20:00] VITALS: BP 150/82
[2018-08-12] MEDS: ATORVASTATIN 20 MG TAB PO SCH (21:00)
[2018-08-12] MEDS: METOPROLOL 50 MG TAB PO SCH (21:00)
--- NOTE | 2018-08-12 21:00 | NUR ---
DUE MEDS GIVEN. PT TOLERATED WELL. BS CHECKED 93.
--- NOTE | 2018-08-12 23:15 | NUR ---
PT WATCHING TV. NO C/O PAIN OR SOB. IVF INFUSING WELL. SAFETY PRECAUTION IN PLACE. CALL LIGHT WITHIN REACH.
[2018-08-13] VITALS: BP 154/88
--- NOTE | 2018-08-13 01:05 | NUR ---
ASSISTED PT TO BATHROOM AND BACK TO BED. DENIES PAIN OR SOB. ALL NEEDS ATTENDED AT THIS TIME.
--- NOTE | 2018-08-13 03:30 | NUR ---
PT SLEEPING BUT EASILY AROUSABLE. RESP EVEN AND UNLABORED. NO S/S PAIN OR DISCOMFORT.
[2018-08-13 04:00] VITALS: BP 151/78
[2018-08-13] MEDS: NACL 0.9% 1,000 ML IV SCH (04:48)
--- NOTE | 2018-08-13 05:30 | NUR ---
BLOOD SUGAR CHECKED 101. NO INSULIN COVERAGE NEEDED. PT DENIES PAIN OR SOB.
[2018-08-13] MEDS: BLOOD GLUCOSE MONITORING 1 DEV DEV FS SCH ×2 (05:58→11:42)
--- NOTE | 2018-08-13 07:23 | NUR ---
ENDORSED PT TO DAY SHIFT NURSE. PT IN STABLE CONDITION.
--- NOTE | 2018-08-13 07:24 | NUR ---
RECEIVED BEDSIDE REPORT FROM MANNEQUIN MOLD MAKER NURSE. PATIENT IS AWAKE,ALERT AND ORIENTED X4. NOT IN DISTRESS ON ROOM AIR. ,AMBULATE WITH ASSIST,FALL RISK PROTOCOL, PATIENT HAS WEAKNESS. SKIN INTACT.R HAND 22G, SL, R AC 18G INFUSING NS AT 60. CLEAN, DRY AND INTACT. ,TELE MONITOR IN PLACE. CONTINENT, URINAL AT BEDSIDE. CALL LIGHT WITHIN REACH. BED IN LOW POSITION .WILL CONTINUE TO MONITOR
[2018-08-13 07:40] LABS: BASOPHILS % (AUTO) 0.5 % (0.0-2.0); EOSINOPHILS # (AUTO) 0.1 K/uL (0-0.4); EOSINOPHILS % (AUTO) 1.4 % (0.0-4.0); HEMATOCRIT 39.8 % (36-52); HEMOGLOBIN 13.9 g/dL (12.0-18.0); LYMPHOCYTES # (AUTO) 1.8 K/uL (2.0-11.5); LYMPHOCYTES % (AUTO) 32.4 % (20.5-51.1); MEAN CORPUSCULAR HEMOGLOBIN 30 pg (27-31); MEAN CORPUSCULAR HGB CONC 35 g/dL (33-37); MEAN CORPUSCULAR VOLUME 86.9 fL (80-94); MONOCYTES # (AUTO) 0.4 K/uL (0.8-1.0); MONOCYTES % (AUTO) 6.8 % (1.7-9.3); NEUTROPHILS # (AUTO) 3.2 K/uL (1.8-7.7); NEUTROPHILS % (AUTO) 58.9 % (42.2-75.2); PLATELET COUNT (AUTO) 178 K/uL (140-450); RED BLOOD CELL COUNT(AUTO) 4.58 MIL/uL (4.20-6.10); RED CELL DISTRIBUTION WIDTH 14.7 % (11.6-13.7); WHITE BLOOD COUNT (AUTO) 5.5 K/uL (4.8-10.8)
[2018-08-13 07:53] LABS: ANION GAP 11.7 (8-16); CARBON DIOXIDE 26.1 mmol/L (21-32); CREATININE 0.9 mg/dL (0.7-1.3); POTASSIUM 3.8 mmol/L (3.5-5.1)
[2018-08-13 07:56] LABS: MAGNESIUM 1.9 mg/dL (1.8-2.4); PHOSPHORUS 2.9 mg/dL (2.5-4.9)
[2018-08-13 08:00] VITALS: BP 147/85
[2018-08-13] MEDS: ALLOPURINOL 100 MG TAB PO SCH (08:44)
[2018-08-13] MEDS: INDOMETHACIN 25 MG CAP PO SCH (08:45)
[2018-08-13] MEDS: ENALAPRIL 10 MG TAB PO SCH (08:45)
--- NOTE | 2018-08-13 08:51 | NUR ---
ADMINISTERED MEDS. PATIENT EDUCATED ON SIDE EFFECTS. PATIENT TOLERATED WELL. WILL CONTINUE TO MONITOR.
--- NOTE | 2018-08-13 10:00 | NUR ---
patient sitting in chair. no signs of distress. call light within reach
--- NOTE | 2018-08-13 11:18 | NUR ---
patient resting in bed. no signs of distress. will continue to monitor
[2018-08-13] MEDS ORDERED: METF500T PO (11:36)
[2018-08-13] MEDS ORDERED: ASPI81EC98 PO (11:38)
--- NOTE | 2018-08-13 11:43 | NUR ---
patient awake ,no signs of distress. will continue to monitor
[2018-08-13 12:00] VITALS: BP 162/96
[2018-08-13] MEDS ORDERED: ENALAPRIL 2.5 MG TAB PO SCH (12:00)
--- NOTE | 2018-08-13 12:10 | NUR ---
ADMINISTERED MEDS. PATIENT TOLERATED WELL. EDUCATED ON SIDE EFFECTS. WILL CONTINUE TO MONITOR
--- NOTE | 2018-08-13 14:00 | NUR ---
PATIENT SITTING IN BED. NO SIGNS OF DISTRESS. WILL CONTINUE TO MONITOR THE PATIENT
--- NOTE | 2018-08-13 15:00 | NUR ---
EDUCATED ON DISEASE PROCESS, ABN S/SX, WHEN TO GO TO THE ER, EDUCATED ON MEDS, MEDS SENT TO PHARMACY, PNA VACCINE NOT A CANDIDATE, FLU HE GOT IN 2019. EDUCATED ON FOLLOW UP W PCP AND TO SEE A USER INTERFACE DESIGNER. IV REMOVED, TIP INTACT. TELE REMOVED. ID BANDS REMOVED. PATIENT GOT A BUS PASS, HE REFUSED TO LET ME CALL FAMILY FOR A RIDE. PATIENT LEFT WALKING IN STABLE CONDITION
== END 2018-08-13 15:00 | disposition home or self-care (01) | DRG 205 ==
LOC: MED 23:27 → MTU 08-11 02:03
PROVIDERS: ADMIT General Practice; ATTEND General Practice
DX: M94.0 Chondrocostal junction syndrome [Tietze] (principal); I21.A1 Myocardial infarction type 2; D68.59 Other primary thrombophilia; I10 Essential (primary) hypertension; E11.65 Type 2 diabetes mellitus with hyperglycemia; E78.2 Mixed hyperlipidemia; N20.0 Calculus of kidney; M10.9 Gout, unspecified; E78.5 Hyperlipidemia, unspecified; Z88.8 Allergy status to other drugs, medicaments and biological substances; F31.9 Bipolar disorder, unspecified; Z83.3 Family history of diabetes mellitus; Z82.49 Family history of ischemic heart disease and other diseases of the circulatory system
CPT/HCPCS: 36415; 71045; 76770; 80048; 80053; 80305; 81003; 82550; 82553; 82948; 83036; 83690; 83735; 83880; 84100; 84134; 84443; 84484; 85025; 85610; 85730; 87081; 93005; 96374; 96376; 99291; J1644; J1815; J7030; Q0092

== ENCOUNTER 2018-08-13 17:17 | Emergency (ER) | payer SELFPAY ==
[~2018-08-13] VITALS: Ht 172.7 cm; Wt 85.0 kg
[~2018-08-13 17:17] MED LIST changes: +ASPI81EC98 PO; +METF500T PO
[2018-08-13 17:25] VITALS: BP 161/102
--- NOTE | 2018-08-13 17:30 | NUR ---
PT AMBULATED TO ED BED 09
--- NOTE | 2018-08-13 17:45 | NUR ---
PATIENT PRESENTS TO ED WITH HIGH BP . PT STATES D/C FORM [facility] TODAY, NOT REFILL MEDS YET. DENIES N/V/D; SKIN IS PINK/WARM/DRY; AAOX4 WITH EVEN AND STEADY GAIT; LUNGS CLEAR BL; HR EVEN AND REGULAR; PT DENIES ANY FEVER, CP, SOB, OR COUGH AT THIS TIME; PATIENT STATES PAIN OF 0/10 AT THIS TIME; VSS; PATIENT POSITIONED FOR COMFORT; HOB ELEVATED; BEDRAILS UP X2; BED DOWN. ER MD MADE AWARE OF PT STATUS.
[2018-08-13 18:01] VITALS: BP 156/95
--- NOTE | 2018-08-13 18:01 | NUR ---
Patient discharged with v/s stable. Written and verbal after care instructions given and explained. Patient verbalized understanding. Ambulatory with steady gait. All questions addressed prior to discharge. Advised to follow up with PMD.
== END 2018-08-13 18:01 | disposition home or self-care (01) ==
LOC: MED 17:17
DX: I10 Essential (primary) hypertension (principal); Z79.82 Long term (current) use of aspirin; Z79.84 Long term (current) use of oral hypoglycemic drugs; Z79.899 Other long term (current) drug therapy; Z88.6 Allergy status to analgesic agent
CPT/HCPCS: 99281

== ENCOUNTER 2021-03-29 20:17 | Inpatient (IN) | payer BC, OTHER, SELFPAY ==
[~2021-03-29] VITALS: Ht 172.7 cm; Wt 78.9 kg
[~2021-03-29 20:17] MED LIST changes: -ENAL5TAB20 PO; +ENAL5TAB34 PO; -IND25 PO; +INDO-323 PO; +METO-251 PO; -METO-50 PO
[2021-03-29 20:34] VITALS: BP 110/56
--- NOTE | 2021-03-29 20:37 | NUR ---
to bed ambulatory
[2021-03-29] MEDS ORDERED: ASPIRIN 81 MG TAB.CHEW PO ONE (21:15)
[2021-03-29] MEDS ORDERED: NACL 0.9% 1,000 ML IV ONE (21:15)
[2021-03-29 21:37] LABS: BASOPHILS % (AUTO) 0.2 % (0.0-2.0); EOSINOPHILS % (AUTO) 0.3 % (0.0-4.0); HEMATOCRIT 43.9 % (36-52); HEMOGLOBIN 14.7 g/dL (12.0-18.0); LYMPHOCYTES % (AUTO) 6.9 % (20.5-51.1); MEAN CORPUSCULAR HEMOGLOBIN 28 pg (27-31); MEAN CORPUSCULAR HGB CONC 34 g/dL (33-37); MEAN CORPUSCULAR VOLUME 84.4 fL (80-94); MONOCYTES # (AUTO) 0.8 K/uL (0.8-1.0); MONOCYTES % (AUTO) 5.5 % (1.7-9.3); NEUTROPHILS # (AUTO) 12.6 K/uL (1.8-7.7); NEUTROPHILS % (AUTO) 87.1 % (42.2-75.2); PLATELET COUNT (AUTO) 202 K/uL (140-450); RED CELL DISTRIBUTION WIDTH 16.2 % (11.6-13.7); WHITE BLOOD COUNT (AUTO) 14.4 K/uL (4.8-10.8)
[2021-03-29 21:59] LABS: ALBUMIN 3.6 g/dL (3.4-5.0); ANION GAP 12.6 (8-16); CARBON DIOXIDE 24.8 mmol/L (21-32); CREATININE 1.2 mg/dL (0.6-1.3); PHOSPHORUS 3.2 mg/dL (2.5-4.9); POTASSIUM 4.4 mmol/L (3.5-5.1); TOTAL BILIRUBIN 0.9 mg/dL (0.0-1.0)
[2021-03-29] MEDS ORDERED: LORazepam 2 MG/ML VIAL IVP PRN ×2 (22:40→23:00)
[2021-03-29 23:05] LABS: BARBITURATE, URINE NEGATIVE ng/ml (NEG <=200); BENZODIAZEPINE, URINE NEGATIVE ng/mL (NEG <=200); CANNABINOID, URINE NEGATIVE ng/mL (NEG <=50); COCAINE, URINE NEGATIVE ng/mL (NEG <=300); OPIATE, URINE POSITIVE ng/mL (NEG <=2000); PHENCYCLIDINE SCREEN,URINE NEGATIVE ng/mL (NEG <=25)
--- NOTE | 2021-03-29 23:52 | NUR ---
KATHIE FEELING BETTER AT THIS TIME VITALS SIGNS IN NORMAL LIMITS NOT COMPLAINIG OF PAIN AT THIS TIME //Lili RN
--- NOTE | 2021-03-30 03:34 | NUR ---
PATIENT SLEEPING COMFORTABLE AT THIS TIME VITALS SIGNS IN NORMAL LIMITS SR 83 ON MONITOR //DiCaprio RN
[2021-03-30] MEDS ORDERED: ALLO100T21 PO (05:22)
[2021-03-30] MEDS ORDERED: ATOR20TA PO (05:24)
[2021-03-30] MEDS ORDERED: CARV3.12 PO (05:25)
[2021-03-30] MEDS ORDERED: FURO-570 PO (05:27)
[2021-03-30] MEDS ORDERED: GABA300C PO (05:28)
[2021-03-30] MEDS ORDERED: POTA10TA70 PO (05:29)
--- NOTE | 2021-03-30 06:02 | NUR ---
PATIENT SLEEPING AT THIS TIME VITALS TIME IN NORMAL LIMITS SR 80 ON MONITOR
[2021-03-30 06:09] LABS: BASOPHILS % (AUTO) 0.2 % (0.0-2.0); EOSINOPHILS % (AUTO) 0.3 % (0.0-4.0); HEMATOCRIT 39.6 % (36-52); HEMOGLOBIN 13.4 g/dL (12.0-18.0); LYMPHOCYTES # (AUTO) 1.2 K/uL (2.0-11.5); LYMPHOCYTES % (AUTO) 9.9 % (20.5-51.1); MEAN CORPUSCULAR HEMOGLOBIN 29 pg (27-31); MEAN CORPUSCULAR HGB CONC 34 g/dL (33-37); MEAN CORPUSCULAR VOLUME 84.7 fL (80-94); MONOCYTES # (AUTO) 0.9 K/uL (0.8-1.0); MONOCYTES % (AUTO) 7.5 % (1.7-9.3); NEUTROPHILS # (AUTO) 10.4 K/uL (1.8-7.7); NEUTROPHILS % (AUTO) 82.1 % (42.2-75.2); PLATELET COUNT (AUTO) 185 K/uL (140-450); RED BLOOD CELL COUNT(AUTO) 4.68 MIL/uL (4.20-6.10); RED CELL DISTRIBUTION WIDTH 16.3 % (11.6-13.7); WHITE BLOOD COUNT (AUTO) 12.6 K/uL (4.8-10.8)
[2021-03-30 06:23] LABS: ALBUMIN 3.2 g/dL (3.4-5.0); ANION GAP 3.5 (8-16); CARBON DIOXIDE 26.5 mmol/L (21-32); CREATININE 1.1 mg/dL (0.6-1.3); MAGNESIUM 2.1 mg/dL (1.8-2.4); TOTAL BILIRUBIN 1.3 mg/dL (0.0-1.0)
--- NOTE | 2021-03-30 07:16 | NUR ---
PATIENT DC HOME STABLE NOT COMPLAINING OF PAIN AT THIS TIME ALL DC INSTRUCTION GAVE AND EXPLAINED WE RECOMMEND TO FOLLOW UP WITH PCP //Lili RN
[2021-03-30] MEDS ORDERED: ONDANSETRON 4 MG/2 ML VIAL IVP PRN (07:30)
[2021-03-30] MEDS ORDERED: DOCUSATE SODIUM 100 MG GELCAP PO PRN (07:30)
[2021-03-30] MEDS ORDERED: MAG SULF 2000 MG/WATER PREMIX 50 ML IV PRN (07:30)
[2021-03-30] MEDS ORDERED: POTASSIUM CHLORIDE 10 MEQ TABER PO PRN (07:30)
[2021-03-30] MEDS ORDERED: ZOLPIDEM 5 MG TAB PO PRN (07:30)
[2021-03-30] MEDS ORDERED: LORazepam 2 MG/ML VIAL IM/IVP PRN (07:30)
[2021-03-30] MEDS ORDERED: HYDROcodone/APAP 5/325 MG 1 TAB TAB PO PRN (07:30)
[2021-03-30] MEDS ORDERED: SODIUM PHOS / POTASSIUM PHOS 1 PKT PDR PO PRN (07:30)
[2021-03-30] MEDS ORDERED: MORPHINE SULFATE 2 MG/ML SYR IVP PRN (07:30)
--- NOTE | 2021-03-30 07:30 | NUR ---
RECEIVED REPORT FROM LIZET GOYAL, ASSUMED CARE AT THIS TIME.
--- NOTE | 2021-03-30 07:50 | NUR ---
PATIENT PROVIDED WITH BREAKFAST TRAY, ASSISTED UP IN BED TO EAT. ALL NEEDS MET AT THIS TIME.
--- NOTE | 2021-03-30 08:15 | NUR ---
Patient will be admitted to care of DR. BRAVO. Admited to TELE. Will go to room 121B. Belongings list completed. Report to ASHA.
[2021-03-30 08:16] LABS: CHOL/HDL RATIO 5.1 (1-4.5); FREE T4 (FREE THYROXINE) 1.07 ng/dL (0.76-1.46); PHOSPHORUS 3.4 mg/dL (2.5-4.9); THYROID STIMULATING HORMONE 1.22 uIU/mL (0.34-3.74)
--- NOTE | 2021-03-30 09:00 | NUR ---
RECEIVED REPORT FROM ED NURSE. PT IS AOX4. NO COMPLAINS OF PAIN. PT BREATHING IS EVEN AND UNLABORED. VS ARE WNL.
[2021-03-30] MEDS ORDERED: DEXTROSE 50% 50 ML SYR IVP PRN (09:05)
[2021-03-30 11:07] LABS: APPEARANCE,URINE HAZY (CLEAR); BILIRUBIN,URINE NEGATIVE (NEGATIVE); BLOOD, URINE TRACE-I (NEGATIVE); COLOR,URINE YELLOW (YELLOW); LEUKOCYTE ESTERASE ,URINE 3+ (NEGATIVE); NITRITE, URINE POSITIVE (NEGATIVE); PH,URINE 7.5 (5.0-9.0); UGLUCOSE NEGATIVE (NEGATIVE)
[2021-03-30 11:27] LABS: RBC,URINE 0-5 /HPF (0-5)
[2021-03-30] MEDS: BLOOD GLUCOSE MONITORING 1 DEV DEV FS SCH ×3 (11:30→21:08)
--- NOTE | 2021-03-30 11:30 | NUR ---
PT STATED HE HAS NO HX OF DIABETES. REFUSED BLOOD SUGAR CHECK.
--- NOTE | 2021-03-30 13:00 | NUR ---
PT BREATHING EVEN AND UNLABORED. PT IS STABLE.
[2021-03-30 16:00] VITALS: BP 103/69
--- NOTE | 2021-03-30 16:30 | NUR ---
PT BREATHING EVEN AND UNLABORED. PT IS STABLE.
--- NOTE | 2021-03-30 17:00 | NUR ---
PT HAS FEVER OF100.3.ICE AND TYLENOL GIVEN TO LOWER TEMP.
--- NOTE | 2021-03-30 19:00 | NUR ---
PT TEMP WENT BACK TO 98.2. PT IS FEELING WELL EATING DINNER.
[2021-03-30] MEDS: ACETAMINOPHEN 325 MG TAB PO PRN (19:05)
[2021-03-30 20:00] VITALS: BP 150/68
--- NOTE | 2021-03-30 20:00 | NUR ---
RECEIVED BEDSIDE REPORT OF PT IN STABLE CONDITION.AWAKE,ALERT AND ORIENTED.RESP.UNLABORED IN RA.LUNGS CLEAR.SL PATENT IN LT.HAND W/O EDEMA AND REDNESS AT SITE.CALL LIGHT IN REACH.TELE IS ON AND SHOWING SR.WILL CONTINUE MONITORING.
[2021-03-30] MEDS: INSULIN LISPRO SLIDING SCALE 100 UNITS/ML VIAL SUBQ PRN (21:19)
[2021-03-31] VITALS: BP 135/70
--- NOTE | 2021-03-31 00:30 | NUR ---
SLEEPING.NO DISTRESS NOTED NOW.HR IS SR.CALL LIGHT WITHIN REACH.WILL CONT.MONITORING.
[2021-03-31 04:00] VITALS: BP 136/83
--- NOTE | 2021-03-31 04:41 | NUR ---
SLEEPING.VS STABLE.HR IS ST.NO S/S OF ANY DISTRESS NOTED.CALL LIGHT IN REACH.
[2021-03-31] MEDS: BLOOD GLUCOSE MONITORING 1 DEV DEV FS SCH ×4 (06:00→21:07)
--- NOTE | 2021-03-31 06:22 | NUR ---
BS-130 THIS AM NO COVERAGE NEEDED.SLEPT WELL.VS STABLE.NO C/O CHEST PAIN WHOLE SHIFT.HR IS SR-ST.
[2021-03-31 06:29] LABS: BASOPHILS % (AUTO) 0.2 % (0.0-2.0); EOSINOPHILS % (AUTO) 0.1 % (0.0-4.0); HEMATOCRIT 43.8 % (36-52); HEMOGLOBIN 14.8 g/dL (12.0-18.0); LYMPHOCYTES # (AUTO) 0.7 K/uL (2.0-11.5); LYMPHOCYTES % (AUTO) 9.9 % (20.5-51.1); MEAN CORPUSCULAR HEMOGLOBIN 29 pg (27-31); MEAN CORPUSCULAR HGB CONC 34 g/dL (33-37); MEAN CORPUSCULAR VOLUME 84.9 fL (80-94); MONOCYTES # (AUTO) 0.4 K/uL (0.8-1.0); MONOCYTES % (AUTO) 5.1 % (1.7-9.3); NEUTROPHILS # (AUTO) 6.3 K/uL (1.8-7.7); NEUTROPHILS % (AUTO) 84.7 % (42.2-75.2); PLATELET COUNT (AUTO) 159 K/uL (140-450); RED BLOOD CELL COUNT(AUTO) 5.16 MIL/uL (4.20-6.10); RED CELL DISTRIBUTION WIDTH 16.4 % (11.6-13.7); WHITE BLOOD COUNT (AUTO) 7.5 K/uL (4.8-10.8)
[2021-03-31 07:12] LABS: ALBUMIN 3.4 g/dL (3.4-5.0); CARBON DIOXIDE 24.3 mmol/L (21-32); CREATININE 1.1 mg/dL (0.6-1.3); MAGNESIUM 2.1 mg/dL (1.8-2.4); POTASSIUM 4.3 mmol/L (3.5-5.1)
--- NOTE | 2021-03-31 07:15 | NUR ---
RECEIVED PATIENT FROM AUTOMATIC COIN MACHINE MECHANIC NURSE FOR CONTINUITY OF CARE. PATIENT IS RESTING IN BED, AROUSABLE TO VOICE. A/O X4. ON TELE MONITOR. RESPIRATORY EVEN AND UNLABORED, ON ROOM AIR. NO SIGN OF DISTRESS NOTED. SKIN WARM, DRY, NON DIAPHORETIC. IV ON LEFT HAND 22G, SALINE LOCK. PATIENT DENIES ANY PAIN OR DISCOMFORT. ABLE TO MAKE NEED KNOWN. PLAN OF CARE DISCUSSED, PATIENT VERBALIZED UNDERSTANDING. WALKER AT BEDSIDE. PRECAUTION IN PLACE. CALL LIGHT WITHIN REACH. WILL CONTINUE TO MONITOR.
[2021-03-31 08:00] VITALS: BP 135/90
--- NOTE | 2021-03-31 09:38 | NUR ---
PATIENT HAS BEEN SCREENED AND CATEGORIZED MODERATE NUTRITION RISK. PATIENT WILL BE SEEN WITHIN 3-5 DAYS OF ADMISSION. 04/03/21-04/05/21 LILIYA FIGUEROA MS, RDN
--- NOTE | 2021-03-31 09:43 | NUR ---
SCHEDULE MEDICATION GIVEN WITH EDUCATION, PATIENT VERBALIZED UNDERSTANDING. PATIENT TOLERATED WELL. NO SIGN OF DISTRESS NOTED. PRECAUTION IN PLACE. CALL LIGHT WITHIN REACH. WILL CONTINUE TO MONITOR.
[2021-03-31 12:00] VITALS: BP 129/88
--- NOTE | 2021-03-31 12:20 | NUR ---
BS CHECK 132, NO INSULIN NEED TO COVER.
--- NOTE | 2021-03-31 14:00 | NUR ---
PATIENT IS SLEEPING, CHEST RISE AND FALL NOTED, NO SIGN OF DISTRESS. PRECAUTION IN PLACE. CALL LIGHT WITHIN REACH. WILL CONTINUE TO MONITOR.
[2021-03-31 16:00] VITALS: BP 123/85
[2021-03-31] MEDS: INSULIN LISPRO SLIDING SCALE 100 UNITS/ML VIAL SUBQ PRN ×2 (17:06→21:13)
--- NOTE | 2021-03-31 17:08 | NUR ---
BLOOD SUGAR CHECK 152, 2UNITS OF INSULIN PER S/S GIVEN WITH EDUCATION. PATIENT VERBALIZED UNDERSTANDING. PATIENT TOLERATED WELL. NO SIGN OF DISTRESS NOTED.
--- NOTE | 2021-03-31 19:10 | NUR ---
RECEIVED PATIENT FROM DY SHIFT NURSE FOR CONTINUITY OF CARE. PATIENT IS RESTING IN BED, AAO X4, ROOM AIR, BEDREST, AMBULATORY WITH FWW, ST ON TELE MONITOR, RESPIRATORY EVEN AND UNLABORED, NO SIGN OF DISTRESS NOTED. SKIN WARM, DRY, NON DIAPHORETIC. IV ON LEFT FOREARM 20G, SALINE LOCK. PATIENT DENIES ANY PAIN OR DISCOMFORT. ABLE TO MAKE NEED KNOWN. PLAN OF CARE DISCUSSED WITH PATIENT, PATIENT VERBALIZED UNDERSTANDING. FRONT WHEEL WALKER AT BEDSIDE. PRECAUTION IN PLACE. CALL LIGHT WITHIN REACH. WILL CONTINUE TO MONITOR.
--- NOTE | 2021-03-31 19:15 | NUR ---
ENDORSED PATIENT TO LEAK OPERATOR PARAFFIN PLANT NURSE FOR CONTINUITY OF CARE. PATIENT IS STABLE.
[2021-03-31 20:00] VITALS: BP 118/73
[2021-03-31] MEDS: carvediloL 3.125 MG TAB PO SCH (20:34)
[2021-03-31] MEDS: ATORVASTATIN 20 MG TAB PO SCH (20:34)
[2021-03-31] MEDS: ACETAMINOPHEN 325 MG TAB PO PRN (20:35)
--- NOTE | 2021-03-31 20:35 | NUR ---
ADMINISTERED TYLENOL 650MG PO PRN FOR HEADACHE
--- NOTE | 2021-03-31 21:07 | NUR ---
BS CHECK 175, ADMINISTERED 2U HUMOLOG SQ
[2021-04-01] VITALS: BP 113/63
--- NOTE | 2021-04-01 00:22 | NUR ---
CLEANED PATIENT AND CHANGED LINENS AND GOWN
[2021-04-01 04:00] VITALS: BP 107/76
[2021-04-01] MEDS: BLOOD GLUCOSE MONITORING 1 DEV DEV FS SCH ×4 (05:13→20:31)
[2021-04-01 06:23] LABS: BASOPHILS % (AUTO) 0.3 % (0.0-2.0); EOSINOPHILS % (AUTO) 0.3 % (0.0-4.0); HEMATOCRIT 45.1 % (36-52); HEMOGLOBIN 15.2 g/dL (12.0-18.0); LYMPHOCYTES # (AUTO) 1.3 K/uL (2.0-11.5); LYMPHOCYTES % (AUTO) 17.4 % (20.5-51.1); MEAN CORPUSCULAR HEMOGLOBIN 28 pg (27-31); MEAN CORPUSCULAR HGB CONC 34 g/dL (33-37); MONOCYTES # (AUTO) 0.7 K/uL (0.8-1.0); MONOCYTES % (AUTO) 9.3 % (1.7-9.3); NEUTROPHILS # (AUTO) 5.4 K/uL (1.8-7.7); NEUTROPHILS % (AUTO) 72.7 % (42.2-75.2); PLATELET COUNT (AUTO) 152 K/uL (140-450); RED BLOOD CELL COUNT(AUTO) 5.37 MIL/uL (4.20-6.10); RED CELL DISTRIBUTION WIDTH 16.2 % (11.6-13.7); WHITE BLOOD COUNT (AUTO) 7.4 K/uL (4.8-10.8)
[2021-04-01 06:38] LABS: ALBUMIN 3.2 g/dL (3.4-5.0); ANION GAP 16.1 (8-16); CREATININE 1.1 mg/dL (0.6-1.3); MAGNESIUM 2.3 mg/dL (1.8-2.4); POTASSIUM 4.1 mmol/L (3.5-5.1); TOTAL BILIRUBIN 0.8 mg/dL (0.0-1.0)
--- NOTE | 2021-04-01 06:58 | NUR ---
WILL ENDORSE TO DAY SHIFT NURSE FOR CONTINUITY OF CARE
--- NOTE | 2021-04-01 07:30 | NUR ---
RECEIVED REPORT FROM PHYSICAL THERAPY NURSE NURSE. PT IN BED, FLACC 0, NO RESPIRATORY DISTRESS
[2021-04-01 08:00] VITALS: BP 112/78
[2021-04-01] MEDS: carvediloL 3.125 MG TAB PO SCH ×2 (09:15→20:34)
[2021-04-01] MEDS: ECOTRIN 81 MG TABEC PO SCH (09:15)
[2021-04-01] MEDS: allopurinoL 100 MG TAB PO SCH (09:15)
[2021-04-01] MEDS: ENALAPRIL 5 MG TAB PO SCH (09:15)
[2021-04-01 12:00] VITALS: BP 127/64
[2021-04-01] MEDS: INSULIN LISPRO SLIDING SCALE 100 UNITS/ML VIAL SUBQ PRN ×3 (12:15→20:32)
[2021-04-01] MEDS ORDERED: HEPARIN PER PHARMACY MC PRN (12:25)
[2021-04-01] MEDS: hePARIN / DEXT 5% PREMIX 250 ML IV SCH (14:53)
--- NOTE | 2021-04-01 15:00 | NUR ---
HEPARIN DRIP STARTED 1300 UNITS/HR, BOLUS OF 5000 UNITS. ORDERED PTT FOR 2100
[2021-04-01 16:00] VITALS: BP 92/61
--- NOTE | 2021-04-01 19:35 | NUR ---
RECEIVED REPORT FROM AM NURSE. PATIENT AWAKE IN BED WELL RESTED. NO ACUTE DISTRESS NOTED. RESPIRATION EVEN UNLABORED. ON ROOM AIR. HEAD OF BED ELEVATED TO 30 DEGREES. IVF HEPARIN DRIP INFUSING AT 1300 UNITS/HR. SAFETY MEASURES IN PLACE. CALL LIGHT WITHIN REACH. WILL CONTINUE TO MONITOR.
[2021-04-01 20:00] VITALS: BP 94/60
[2021-04-01] MEDS: ATORVASTATIN 20 MG TAB PO SCH (20:24)
--- NOTE | 2021-04-01 20:24 | NUR ---
SCHEDULED MED GIVEN PER MD ORDERED.
--- NOTE | 2021-04-01 20:31 | NUR ---
BLOOD SUGAR CHECKED WAS 160 2 UNITS HUMALOG ADMINISTERED ORDERED PER SLIDING SCALE.
--- NOTE | 2021-04-01 21:56 | NUR ---
LAB CALLED FOR CRITICAL LAB VALUE PTT- 61.4 . PATIENT ON HEPARIN DRIP. PER PROTOCOL NO CHANGE AT THIS TIME. WILL CONTINUE TO MONITOR.
[2021-04-02] VITALS: BP 102/66
--- NOTE | 2021-04-02 00:30 | NUR ---
PATIENT IS SLEEPING, NO SOB NOTED. CALL LIGHT WITHIN REACH.
[2021-04-02 03:23] LABS: BASOPHILS % (AUTO) 0.5 % (0.0-2.0); EOSINOPHILS # (AUTO) 0.1 K/uL (0-0.4); EOSINOPHILS % (AUTO) 1.1 % (0.0-4.0); HEMATOCRIT 43.2 % (36-52); HEMOGLOBIN 14.4 g/dL (12.0-18.0); LYMPHOCYTES # (AUTO) 1.4 K/uL (2.0-11.5); LYMPHOCYTES % (AUTO) 20.6 % (20.5-51.1); MEAN CORPUSCULAR HEMOGLOBIN 28 pg (27-31); MEAN CORPUSCULAR HGB CONC 33 g/dL (33-37); MONOCYTES # (AUTO) 0.7 K/uL (0.8-1.0); MONOCYTES % (AUTO) 10.4 % (1.7-9.3); NEUTROPHILS # (AUTO) 4.8 K/uL (1.8-7.7); NEUTROPHILS % (AUTO) 67.4 % (42.2-75.2); PLATELET COUNT (AUTO) 136 K/uL (140-450); RED BLOOD CELL COUNT(AUTO) 5.15 MIL/uL (4.20-6.10); RED CELL DISTRIBUTION WIDTH 15.9 % (11.6-13.7)
--- NOTE | 2021-04-02 03:32 | NUR ---
LAB CALLED FOR PTT RESULTS 61.2 , 2 CONSECUTIVE THERAPEUTIC RANGE. NEXT PTT ON 04/03/21 AT 0300.
[2021-04-02 03:46] LABS: ANION GAP 12.5 (8-16); CARBON DIOXIDE 23.9 mmol/L (21-32); CREATININE 1.1 mg/dL (0.6-1.3); MAGNESIUM 2.1 mg/dL (1.8-2.4); POTASSIUM 4.4 mmol/L (3.5-5.1); TOTAL BILIRUBIN 0.6 mg/dL (0.0-1.0)
[2021-04-02 04:00] VITALS: BP 109/82
[2021-04-02] MEDS: BLOOD GLUCOSE MONITORING 1 DEV DEV FS SCH ×4 (06:50→20:27)
--- NOTE | 2021-04-02 06:50 | NUR ---
BLOOD SUGAR CHECKED WAS 109. NO COVERAGE GIVEN.
[2021-04-02 08:00] VITALS: BP 113/77
--- NOTE | 2021-04-02 08:00 | NUR ---
RECEIVED REPORT FROM LANDING SUPPORT SPECIALIST FOR CONTINUITY OF CARE. PATIENT IS ALERT AWAKE ORIENTED X4, NOT IN ANY DISTRESS NOTED. WITH HEPARIN DRIP INFUSING WELL RUNNING @ 13/ML HR. ON HEART MONITOR SHOWS SR. DENIES CHEST PAIN. RESTING IN BED. SEEN BY DR. MILLAN WITH NEW ORDER. NEEDS ATTENDED. WILL CONTINUE TO MONITOR.
[2021-04-02] MEDS: carvediloL 3.125 MG TAB PO SCH ×2 (08:44→20:17)
[2021-04-02] MEDS: ENALAPRIL 5 MG TAB PO SCH (08:44)
[2021-04-02] MEDS: allopurinoL 100 MG TAB PO SCH (08:44)
[2021-04-02] MEDS: ECOTRIN 81 MG TABEC PO SCH (08:45)
--- NOTE | 2021-04-02 10:00 | NUR ---
PATIENT RESTING IN BED. NO C/O PAIN NEEDS ATTENDED, WILL CONTINUE TO MONITOR.
[2021-04-02 11:39] LABS: PROTHROMBIN TIME 12.1 secs (10.8-13.4)
[2021-04-02 12:00] VITALS: BP 102/69
[2021-04-02] MEDS: hePARIN / DEXT 5% PREMIX 250 ML IV SCH (13:06)
[2021-04-02 16:00] VITALS: BP 105/68
--- NOTE | 2021-04-02 16:00 | NUR ---
PATIENT RESTING IN BED, NO C/O CHEST PAIN, NOT IN DISTRESS NOTED. WILL CONTINUE TO MONITOR.
[2021-04-02] MEDS ORDERED: WARFARIN 5 MG TAB PO SCH (17:00)
--- NOTE | 2021-04-02 17:00 | NUR ---
COUMADIN GIVEN ORDER.
--- NOTE | 2021-04-02 19:22 | NUR ---
REPORT GIVEN TO THE ANIMAL HUSBANDRY WORKER FOR CONTINUITY OF CARE. IN STABLE CONDITION.
[2021-04-02 20:00] VITALS: BP 92/51
--- NOTE | 2021-04-02 20:00 | NUR ---
RECEIVED PATIENT AWAKE AND ALERT IN BED. PATIENT DENIES ANY PAIN OR DISCOMFORT AT THIS TIME. PT ON ROOM AIR. NO SOB OR S/S OF DISTRESS. PT ON HEPARIN GTT AT 1300U/HR. PT ON TELE MONITORING. PLAN OF CARE DISCUSSED. PT VERBALIZED UNDERSTANDING. BED LOWERED WITH CALL LIGHT WITHIN REACH. WILL CONTINUE TO MONITOR.
[2021-04-02] MEDS: ATORVASTATIN 20 MG TAB PO SCH (20:25)
[2021-04-02] MEDS: INSULIN LISPRO SLIDING SCALE 100 UNITS/ML VIAL SUBQ PRN (21:46)
[2021-04-03] VITALS: BP 100/53
--- NOTE | 2021-04-03 00:08 | NUR ---
PT ASLEEP IN BED. NO S/S OF DISTRESS NOTED
[2021-04-03 03:19] LABS: BASOPHILS % (AUTO) 0.8 % (0.0-2.0); EOSINOPHILS # (AUTO) 0.1 K/uL (0-0.4); EOSINOPHILS % (AUTO) 2.5 % (0.0-4.0); HEMATOCRIT 39.9 % (36-52); HEMOGLOBIN 13.3 g/dL (12.0-18.0); LYMPHOCYTES # (AUTO) 1.6 K/uL (2.0-11.5); MEAN CORPUSCULAR HEMOGLOBIN 28 pg (27-31); MEAN CORPUSCULAR HGB CONC 33 g/dL (33-37); MEAN CORPUSCULAR VOLUME 84.6 fL (80-94); MONOCYTES # (AUTO) 0.7 K/uL (0.8-1.0); MONOCYTES % (AUTO) 13.4 % (1.7-9.3); NEUTROPHILS # (AUTO) 2.9 K/uL (1.8-7.7); NEUTROPHILS % (AUTO) 53.3 % (42.2-75.2); PLATELET COUNT (AUTO) 165 K/uL (140-450); RED BLOOD CELL COUNT(AUTO) 4.72 MIL/uL (4.20-6.10); RED CELL DISTRIBUTION WIDTH 15.6 % (11.6-13.7); WHITE BLOOD COUNT (AUTO) 5.4 K/uL (4.8-10.8)
[2021-04-03 03:36] LABS: PROTHROMBIN TIME 11.2 secs (10.8-13.4)
[2021-04-03 03:38] LABS: ALBUMIN 2.8 g/dL (3.4-5.0); ANION GAP 12.6 (8-16); CARBON DIOXIDE 25.9 mmol/L (21-32); CREATININE 1.1 mg/dL (0.6-1.3); POTASSIUM 4.5 mmol/L (3.5-5.1); TOTAL BILIRUBIN 0.4 mg/dL (0.0-1.0)
[2021-04-03 04:00] VITALS: BP 101/50
--- NOTE | 2021-04-03 04:01 | NUR ---
PTT 54.3. NO CHANGES MADE ON HEPARIN GTT PER PROTOCOL. PT TOLERATING WELL
[2021-04-03] MEDS: BLOOD GLUCOSE MONITORING 1 DEV DEV FS SCH ×4 (06:59→21:03)
[2021-04-03 08:00] VITALS: BP 121/83
[2021-04-03] MEDS: ECOTRIN 81 MG TABEC PO SCH (09:07)
[2021-04-03] MEDS: allopurinoL 100 MG TAB PO SCH (09:07)
[2021-04-03] MEDS: ENALAPRIL 5 MG TAB PO SCH (09:08)
[2021-04-03] MEDS: carvediloL 3.125 MG TAB PO SCH ×2 (09:08→21:58)
[2021-04-03] MEDS: hePARIN / DEXT 5% PREMIX 250 ML IV SCH (09:16)
--- NOTE | 2021-04-03 10:48 | NUR ---
Patient received in bed, on Heparin drip. PTT therapeutic, no change in rate, continue 13 ml/hr. Up with PT for mobility. will continue to monitor. IV ABT infusing
[2021-04-03 12:00] VITALS: BP 105/67
[2021-04-03] MEDS: INSULIN LISPRO SLIDING SCALE 100 UNITS/ML VIAL SUBQ PRN (12:33)
--- NOTE | 2021-04-03 13:08 | NUR ---
PHYSICAL THERAPY CO-SIGN The Physical Therapy Progress Notes documented by Wool Handler have been reviewed. Reviewed/Co-Signed by: Joann Coles Documentation Done by: KIM WHITT PTA
[2021-04-03 16:00] VITALS: BP 120/80
[2021-04-03] MEDS ORDERED: WARFARIN 5 MG TAB PO SCH (17:00)
--- NOTE | 2021-04-03 17:00 | NUR ---
DC PLANNING PATIENT IS A 60-YEAR-OLD MALE ADMITTED ON THE [facility]/ED ON 03/29/2021. DUE TO PATIENT REPORTING INCREASED CHEST PAIN AND SHORTNESS OF BREATH. SW MET WITH PATIENT AT BEDSIDE DISCUSS AND GATHER HIS COLLATERAL INFORMATION. PER PATIENT HE MOVED TO [place] ABOUT A YEAR AGO TO A CAMP HOPE AND JUST RECENTLY 03/11/2021 HE DECIDED TO COME BACK TO VISIT HIS FAMILY FOR THE HOLIDAYS WITHOUT CALLING THEM FIRST OR ATTEMPTING TO MAKE CONNECTIONS WITH THEM BEFORE HE ARRIVES IN THE [place] OF [place]. PER PATIENT WHEN HE ARRIVED TO THE HOMES OF HIS SIBLINGS. THE NEW OWNERS TOLD HIM THAT HIS FAMILY HAS MOVED AND PATIENT HAS NO WAY TO FIND THEM NOW. PER PATIENT SINCE THEN HAS BEEN STAYING AT A [facility] IN [place] AND PLANS TO FIND A PLACE TO LIVE HERE IN [place] SOON. SW PROVIDED HIM WITH RESOURCES FOR EMERGENCY SHELTERS AND TRANSITIONAL HOUSING, WELL OTHER EMERGENCY RESOURCES. PER PATIENT HE WAS NOT FEELING WELL ON HIS HOTEL ROOM FOR A COUPLE DAYS NOW AND DECIDED TO COME TO THE HOSPITAL FOR THAT REASON. PATIENT WAS A BIT GUARDED AND VAGUE WITH SOME OF HIS INFORMATION, COLLATERAL INFORMATION AND DETAILS. PER PATIENT HE HAS NO A.D AND DECLINED INFORMATION PACKET PROVIDED BY NOAH. PATIENT REPORTED THAT HIS WALKER IS THE ONLY DME HE HAS. PER PATIENT HE WILL BE FINDING A ASSISTED IN ONE OF THE PLACES IN THE LIST OF RESOURCES THIS DIFFUSION OPERATOR PROVIDED TO HIM. PATIENT REPORTED NOT HAVING ANY ISSUES GETTING OR TAKING HIS MEDICATIONS THAT HE CAN USUALLY GET FROM [facility] IN [place] IN [place] OR [place]. PATIENT STATED THAT HE HAS A PRIMARY DOCTOR HOWEVER HE DO NOT FOLLOW UP OFTEN SW DISCUSS THE NEED FOR A FOLLOW UP APPOINTMENT WITHIN 7 DAYS AFTER HIS DISCHARGE AND HE AGREED TO MAKE HIS OWN APPOINTMENT. PATIENT REPORTED HE WILL BE GOING TO A ASSISTED AFTER DISCHARGE AND WILL NEED TRANSPORT OR A BUS PASS. SW WILL FOLLOW UP NEEDED.
--- NOTE | 2021-04-03 19:25 | NUR ---
RECEIVED PATIENT FROM AM SHIFT NURSE FOR CONTINUITY OF CARE. PATIENT IN BED AWAKE, ALERT AND VERBALLY RESPONSIVE. HOB SLIGHTLY ELEVATED. BREATHING EVEN AND UNLABORED WITH NO SOB NOTED. NOT IN DISTRESS. DENIES ANY PAIN OR DISCOMFORT AT THIS TIME. ALL SAFETY MEASURES IN PLACE. CALL LIGHT WITHIN REACH. WILL CONTINUE WITH THE PLAN OF CARE.
[2021-04-03 20:00] VITALS: BP 114/77
--- NOTE | 2021-04-03 20:45 | NUR ---
ADMINISTERED SCHEDULE MEDICATIONS PER MD ORDER. ECHO WELL. NO ASE NOTED.
[2021-04-03] MEDS ORDERED: CRUSHER, PILL MC ONE (20:52)
[2021-04-03] MEDS: ATORVASTATIN 20 MG TAB PO SCH (22:00)
--- NOTE | 2021-04-03 22:47 | NUR ---
CHECKED ON PATIENT. SLEEPING WELL. BREATHING EVEN AND UNLABORED WITH NO SOB NOTED. NOT IN DISTRESS. ALL SAFETY MEASURES IN PLACE. CALL LIGHT WITHIN REACH. WILL CONTINUE TO MONITOR.
--- NOTE | 2021-04-04 01:49 | NUR ---
ROUNDED ON PATIENT. PATIENT ASLEEP WITH VISIBLE CHEST RISING AND FALLING. ALL SAFETY MEASURES IN PLACE. CALL LIGHT WITHIN REACH. WILL CONTINUE TO MONITOR.
[2021-04-04 03:12] LABS: BASOPHILS # (AUTO) 0.2 K/uL (0.00-0.22); BASOPHILS % (AUTO) 3.3 % (0.0-2.0); EOSINOPHILS # (AUTO) 0.2 K/uL (0-0.4); EOSINOPHILS % (AUTO) 3.3 % (0.0-4.0); HEMATOCRIT 39.1 % (36-52); HEMOGLOBIN 13.2 g/dL (12.0-18.0); LYMPHOCYTES # (AUTO) 1.3 K/uL (2.0-11.5); LYMPHOCYTES % (AUTO) 21.7 % (20.5-51.1); MEAN CORPUSCULAR HEMOGLOBIN 28 pg (27-31); MEAN CORPUSCULAR HGB CONC 34 g/dL (33-37); MEAN CORPUSCULAR VOLUME 83.8 fL (80-94); MONOCYTES # (AUTO) 0.3 K/uL (0.8-1.0); MONOCYTES % (AUTO) 5.3 % (1.7-9.3); NEUTROPHILS # (AUTO) 4.1 K/uL (1.8-7.7); NEUTROPHILS % (AUTO) 66.4 % (42.2-75.2); PLATELET COUNT (AUTO) 175 K/uL (140-450); RED BLOOD CELL COUNT(AUTO) 4.67 MIL/uL (4.20-6.10); RED CELL DISTRIBUTION WIDTH 15.7 % (11.6-13.7); WHITE BLOOD COUNT (AUTO) 6.2 K/uL (4.8-10.8)
--- NOTE | 2021-04-04 03:30 | NUR ---
CHECKED ON PATIENT. PATIENT ASLEEP WITH VISIBLE CHEST RISING AND FALLING. CALL LIGHT WITHIN REACH. WILL CONTINUE TO MONITOR.
[2021-04-04 04:00] VITALS: BP 122/81
[2021-04-04 04:02] LABS: ALBUMIN 3.1 g/dL (3.4-5.0); ANION GAP 10.6 (8-16); CARBON DIOXIDE 26.8 mmol/L (21-32); CREATININE 0.9 mg/dL (0.6-1.3); MAGNESIUM 1.9 mg/dL (1.8-2.4); POTASSIUM 4.4 mmol/L (3.5-5.1); TOTAL BILIRUBIN 0.4 mg/dL (0.0-1.0)
[2021-04-04] MEDS: hePARIN / DEXT 5% PREMIX 250 ML IV SCH ×2 (04:07→11:04)
--- NOTE | 2021-04-04 05:44 | NUR ---
PATIENT ASLEEP. BREATHING EVEN AND UNLABORED WITH NO SOB NOTED. CALL LIGHT WITHIN REACH. WILL CONTINUE TO MONITOR.
[2021-04-04] MEDS: BLOOD GLUCOSE MONITORING 1 DEV DEV FS SCH ×5 (07:13→20:58)
--- NOTE | 2021-04-04 07:15 | NUR ---
ENDORSED PATIENT REPORT TO AM SHIFT NURSE FOR CONTINUITY OF CARE. PATIENT IS STABLE.
--- NOTE | 2021-04-04 07:16 | NUR ---
RECEIVED BEDSIDE REPORT FROM DEFECTIVE CIGARETTE SLITTER NURSE. PT IS BREATHING UNLABORED AND EVEN. NO S/S OF DISTRESS. PT IS STABLE.
[2021-04-04] MEDS: carvediloL 3.125 MG TAB PO SCH ×2 (09:00→20:59)
[2021-04-04] MEDS: ENALAPRIL 5 MG TAB PO SCH (09:00)
[2021-04-04] MEDS: ECOTRIN 81 MG TABEC PO SCH (09:00)
[2021-04-04] MEDS: SPIRONOLACTONE 25 MG TAB PO SCH (09:00)
[2021-04-04] MEDS: allopurinoL 100 MG TAB PO SCH (09:00)
--- NOTE | 2021-04-04 11:04 | NUR ---
REPLACED HEPARIN DRIP BAG. STILL RUNNING AT 13 ML/HR. PT IS BREATHING UNLABORED AND EVEN. NO S/S OF DISTRESS. PT IS STABLE.
--- NOTE | 2021-04-04 11:30 | NUR ---
BLOOD SUGAR IS 128. NO CEOVERAGE NEEDED.
[2021-04-04 12:00] VITALS: BP 114/77
--- NOTE | 2021-04-04 12:24 | NUR ---
04/04/21 RD INITIAL ASSESSMENT COMPLETED PLEASE REFER TO NUTRITION ASSESSMENT UNDER CARE ACTIVITY FOR ESTIMATED NUTRITIONAL NEEDS. 1. CONTINUE CARDIAC DIET TOLERATED 2. PROVIDE FDI EDUCATION 3. RD TO FOLLOW-UP 3-5 DAYS, MODERATE RISK REVIEWED BY CHINA TRAN RD
--- NOTE | 2021-04-04 16:54 | NUR ---
DC PLANNING: CM SPOKE WITH THE PATIENT AT BEDSIDE TO DISCUSS DC PLANNING. PATIENT CAME HERE FROM [place] TO FIND FAMILY AND HAS BEEN STAYING IN A [facility] LOCALLY. HE WAS ADMITTED THROUGH THE ED WITH C/O CHST PAIN X 2 DAYS. EKG DONE, STEMI R/O, GIVEN ASA X 2. WBC'S 14.4, CARDIAC CONSULT RECOMMENDS STATINS. ECHO SHOWS A CARDIAC APEX THROMBUS, STARTED ON COUMADIN, INR SUBTHERAPEUTIC AT 1.15. PATIENT WITH ORDER FOR SNF, HE STATES HE IS WILLING TO GO WHERE HE IS ACCEPTED. CM EXPLAINED THAT HE WILL GO TO A CONTRACTED SNF, [facility] IS WILLING TO CONSIDER, REFERRAL SENT TO THEM. CM WILL FOLLOW UP IN AM REGARDING ACCEPTANCE.
[2021-04-04] MEDS: WARFARIN 2.5 MG, WARFARIN 5 MG PO SCH ×2 (17:00)
[2021-04-04] MEDS ORDERED: WARFARIN 2.5 MG TAB ONE (18:07)
[2021-04-04] MEDS ORDERED: WARFARIN 5 MG TAB ONE (18:08)
--- NOTE | 2021-04-04 18:12 | NUR ---
GAVE PT 7.5MG OFCOUMADIN PER MD ORDER.
--- NOTE | 2021-04-04 19:17 | NUR ---
FIXED THE RATE ON THE IV FLOWSHEET FROM 0.13 TO 13ML/HR. INFORMED CHARGE NURSE ABOUT RATE. IV HASBEEN RUNNING AT 13ML/HR ALL DAY, NOT .13ML/HR. PT IS BREATHING UNLABORED AND EVEN. NO S/S OF DISTRESS. PT IS STABLE.
--- NOTE | 2021-04-04 19:30 | NUR ---
RECEIVED PATIENT REPORT FROM AM SHIFT NURSE FOR CONTINUITY OF CARE. PATIENT IN BED AWAKE, ALERT AND VERBALLY RESPONSIVE. ABLE TO VERBALIZED NEEDS. RESPIRATIONS EVEN AND UNLABORED WITH NO SOB NOTED. NOT IN DISTRESS. DENIES ANY PAIN OR DISCOMFORT AT THIS TIME. ALL SAFETY MEASURES ARE IN PLACE. CALL LIGHT WITHIN REACH. WILL CONTINUE WITH THE CURRENT PLAN OF CARE
--- NOTE | 2021-04-04 19:31 | NUR ---
ENDORSED PT TO ACCOUNT DEVELOPMENT MANAGER NURSE FOR CONTINUITY OF CARE.
[2021-04-04 20:00] VITALS: BP 118/74
--- NOTE | 2021-04-04 20:00 | NUR ---
Patient's Plan of Care was discussed and reviewed with MAGNO MORROW.
[2021-04-04] MEDS: ATORVASTATIN 20 MG TAB PO SCH (21:00)
--- NOTE | 2021-04-04 21:00 | NUR ---
ADMINISTERED SCHEDULE MEDICATION PER MD ORDER. PATIENT TOLERATED WELL. NO ASE NOTED.
[2021-04-04] MEDS: INSULIN LISPRO SLIDING SCALE 100 UNITS/ML VIAL SUBQ PRN (21:03)
--- NOTE | 2021-04-04 23:16 | NUR ---
ROUNDED ON PATIENT. PATIENT ASLEEP. BREATHING EVEN AND UNLABORED. NO SOB NOTED. ALL SAFETY MEASURES IN PLACE. CALL LIGHT WITHIN REACH. WILL CONTINUE TO MONITOR.
--- NOTE | 2021-04-05 00:17 | NUR ---
ANSWERED PATIENT CALL LIGHT. PATIENT WANTS TO EMPTY HIS URINAL. URINAL EMPTIED. ALL SAFETY MEASURES IN PLACE. CALL LIGHT WITHIN REACH. WILL CONTINUE TO MONITOR.
--- NOTE | 2021-04-05 02:55 | NUR ---
CHECKED ON PATIENT. PATIENT ASLEEP. VISIBLE CHEST RISING AND FALLING. CALL LIGHT WITHIN REACH. WILL CONTINUE TO MONITOR.
[2021-04-05 04:00] VITALS: BP 113/78
[2021-04-05] MEDS: BLOOD GLUCOSE MONITORING 1 DEV DEV FS SCH ×4 (06:37→21:00)
--- NOTE | 2021-04-05 07:24 | NUR ---
RECEIVED REPORT FROM NUCLEAR INSTRUCTOR NURSE FOR CONTINUITY OF CARE. BREATHING SYMMETRICAL. NO S/S OF DISTRESS. CALL LIGHT IN REACH. ALL SAFETY MEASURES IN PLACE
--- NOTE | 2021-04-05 07:27 | NUR ---
PHYSICAL THERAPY CO-SIGN The Physical Therapy Progress Notes documented by Entry Level have been reviewed. Reviewed/Co-Signed by: Joann Coles Documentation Done by: KIM WHITT PTA Addendum: 04/05/21 at 9427 by Joann Coles PT Amended: Links added.
--- NOTE | 2021-04-05 07:28 | NUR ---
ENDORSED PATIENT TO AM SHIFT NURSE FOR CONTINUITY OF CARE. PATIENT IS STABLE.
[2021-04-05] MEDS: ENALAPRIL 5 MG TAB PO SCH (09:00)
[2021-04-05] MEDS: carvediloL 3.125 MG TAB PO SCH ×2 (09:00→23:52)
[2021-04-05] MEDS: ECOTRIN 81 MG TABEC PO SCH (09:24)
[2021-04-05] MEDS: SPIRONOLACTONE 25 MG TAB PO SCH (09:24)
[2021-04-05] MEDS: allopurinoL 100 MG TAB PO SCH (09:25)
--- NOTE | 2021-04-05 10:00 | NUR ---
SCHEDULED MEDICATIONS GIVEN PER MD ORDER. BREATHING EVEN AND UNLABORED. DENIES CHEST PAIN AT THIS TIME. CALL LIGHT WITHIN REACH. ALL SAFETY MEASURES IN PLACE
[2021-04-05] MEDS: INSULIN LISPRO SLIDING SCALE 100 UNITS/ML VIAL SUBQ PRN (12:04)
--- NOTE | 2021-04-05 12:59 | NUR ---
PT SITTING IN CHAIR, LUNCH AT BEDSIDE. NO S/S OF DISTRESS. ENDORSED PT TO FABIENNE KIRAN. PT STABLE
--- NOTE | 2021-04-05 13:00 | NUR ---
RECEIVED REPORT FROM JYOTSNA NAGY, FOR CONTINUITY OF CARE. PT IS SITTING UP AT THIS TIME EATING LUNCH. RESPIRATIONS ARE EVEN AND UNLABORED. NO SIGNS OF DISTRESS NOTED. WILL CONTINUE TO MONITOR.
--- NOTE | 2021-04-05 15:14 | NUR ---
DID ROUNDS ON PT. PT IS IN BED AT THIS TIME WATCHING TELEVISION. RESPIRATIONS ARE EVEN AND UNLABORED. NO SIGNS OF DISTRESS NOTED. NO COMPLAINTS OF PAIN OR DISCOMFORT AT THIS TIME. WILL CONTINUE TO MONITOR. CALL LIGHT WITHIN REACH. ALL SAFETY MEASURES IN PLACE.
[2021-04-05 16:00] VITALS: BP 109/54
[2021-04-05] MEDS ORDERED: WARFARIN 5 MG TAB ONE (16:48)
[2021-04-05] MEDS ORDERED: WARFARIN 2.5 MG TAB ONE (16:48)
[2021-04-05] MEDS: WARFARIN 2.5 MG, WARFARIN 5 MG PO SCH ×2 (16:51)
--- NOTE | 2021-04-05 17:16 | NUR ---
PT IN BED AT THIS TIME WATCHING TELEVISION. NO COMPLAINTS OF PAIN OR DISCOMFORT. NO SIGNS OF DISTRESS NOTED. WILL CONTINUE TO MONITOR.
--- NOTE | 2021-04-05 19:36 | NUR ---
ENDORSED PT TO SCREEN VENT BINDER NURSE FOR CONTINUITY OF CARE. PT IS STABLE.
--- NOTE | 2021-04-05 19:40 | NUR ---
RECEIVED REPORT AT BEDSIDE FOR CONTINUITY OF CARE, PT IN STABLE CONDITION.
--- NOTE | 2021-04-05 20:30 | NUR ---
TP IS AOX3 HE IS AWAKE AND ALERT WITH 2 IV SITES ( L F/A 22G AND R FA 20 G)THAT ARE FLUSHED PATENT AND SALINE LOCKED. HE IS ON ROOM AIR WITH NO C/O VOICED. PT HAS 2 URINALS AT BEDSIDE, THAT WERE EMPTIED. V/S FOLLOWS: T 98.6 P 83 R 18 B/P 111/40 02 96% ON ROOM AIR. ALL FALLS PRECAUTIONS IN PLACE.
--- NOTE | 2021-04-05 21:30 | NUR ---
PT WAS GIVEN ORDERED LIPITOR, EDUCATION REGARDING MEDICATION PROVIDED AT BEDSIDE, COREG HELD AT THIS TIME, DUE TO LOW B/P . REACHED OUT TO PRIMARY MANUEL, IF SHE WANTS ME TO HOLD OR GIVE COREG. PT FINGERSTICK IS 109, NO HUMALOG COVERAGE NEEDED. ALL FALLS PRECAUTIONS IN PLACE.
[2021-04-05] MEDS: ATORVASTATIN 20 MG TAB PO SCH (22:17)
--- NOTE | 2021-04-05 22:20 | NUR ---
MANUEL TEXTED BACK VIA KRYPTO TEST OK TO GIVE COREG. COREG 1 TAB GIVEN ORDERED. ALL ORDERED PRECAUTIONS IN PLACE AND ALL REQUESTED NEEDS ATTENDED BY STAFF.
[2021-04-06] VITALS: BP 111/40
--- NOTE | 2021-04-06 00:30 | NUR ---
ROUNDS DONE, PT IN BED ASLEEP ALL ORDERED PRECAUTIONS IN PLACE.
--- NOTE | 2021-04-06 02:30 | NUR ---
ROUNDS DONE, PT ASLEEP NO S/S OF PAIN OR DISTRESS NOTED ALL FALLS PRECAUTIONS IN PLACE.
--- NOTE | 2021-04-06 04:30 | NUR ---
PT IN BED RESTING ALL REQUESTED NEEDS ATTENDED BY STAFF, V/S FOLLOWS: T 98.8 P 83 R 18 B/P 112/68 02 97% ON ROOM AIR. ALL FALLS PRECAUTIONS IN PLACE.
[2021-04-06 06:20] LABS: PROTHROMBIN TIME 31.9 secs (10.8-13.4)
[2021-04-06] MEDS: BLOOD GLUCOSE MONITORING 1 DEV DEV FS SCH ×4 (07:13→21:00)
--- NOTE | 2021-04-06 07:30 | NUR ---
RECEIVED REPORT FROM TICKET ATTENDANT NURSE FOR CONTINUITY OF CARE. PT IS IN BED SLEEPING AT THIS TIME.RESPIRATIONS ARE EVEN AND UNLABORED. NO SIGNS OF DISTRESS NOTED. NO COMPLAINTS OF PAIN OR DISCOMFORT. CALL LIGHT WITHIN REACH. ALL SAFETY MEASURES IN PLACE. WILL CONTINUE TO MONITOR.
[2021-04-06 08:00] VITALS: BP 118/72
[2021-04-06] MEDS: ECOTRIN 81 MG TABEC PO SCH (08:34)
[2021-04-06] MEDS: SPIRONOLACTONE 25 MG TAB PO SCH (08:34)
[2021-04-06] MEDS: allopurinoL 100 MG TAB PO SCH (08:35)
[2021-04-06] MEDS: ENALAPRIL 5 MG TAB PO SCH (08:36)
[2021-04-06] MEDS: carvediloL 3.125 MG TAB PO SCH ×2 (08:37→22:22)
--- NOTE | 2021-04-06 08:38 | NUR ---
ADMINISTERED SCHEDULED MEDICATIONS. HELD BP MEDS DUE TO DECREASED BP. WILL CONTINUE TO MONITOR.
[2021-04-06] MEDS ORDERED: SPIR25TA PO (10:27)
[2021-04-06] MEDS ORDERED: WARF-82 PO (10:27)
--- NOTE | 2021-04-06 11:30 | NUR ---
BLOOD GLUCOSE WAS 147. NO INSULIN NEEDED PER SLIDING SCALE. WILL CONTINUE TO MONITOR. PT IN BED RESTING AT THIS TIME. RESPIRATIONS ARE EVEN AND UNLABORED. NO SIGNS OF DISTRESS NOTED.
--- NOTE | 2021-04-06 11:45 | NUR ---
DISCHARGE ORDER IN PLACE. ACCORDING TO CM NOTES, PT TO DISCHARGE TO SNF OR [facility], WHICH EVER ACCEPTS HIM. AT THIS TIME, NO UPDATES ON WEATHER OR NOT ANY SNF OR [facility] ACCEPT PT. AWAITING UPDATES. WILL CONTINUE TO MONITOR.
[2021-04-06 11:58] LABS: BASOPHILS % (AUTO) 0.4 % (0.0-2.0); EOSINOPHILS # (AUTO) 0.1 K/uL (0-0.4); EOSINOPHILS % (AUTO) 1.4 % (0.0-4.0); HEMATOCRIT 41.8 % (36-52); HEMOGLOBIN 14.3 g/dL (12.0-18.0); LYMPHOCYTES # (AUTO) 1.5 K/uL (2.0-11.5); LYMPHOCYTES % (AUTO) 18.6 % (20.5-51.1); MEAN CORPUSCULAR HEMOGLOBIN 29 pg (27-31); MEAN CORPUSCULAR HGB CONC 34 g/dL (33-37); MEAN CORPUSCULAR VOLUME 83.3 fL (80-94); MONOCYTES # (AUTO) 0.5 K/uL (0.8-1.0); MONOCYTES % (AUTO) 6.3 % (1.7-9.3); NEUTROPHILS # (AUTO) 6.1 K/uL (1.8-7.7); NEUTROPHILS % (AUTO) 73.3 % (42.2-75.2); PLATELET COUNT (AUTO) 259 K/uL (140-450); RED BLOOD CELL COUNT(AUTO) 5.01 MIL/uL (4.20-6.10); RED CELL DISTRIBUTION WIDTH 15.8 % (11.6-13.7); WHITE BLOOD COUNT (AUTO) 8.3 K/uL (4.8-10.8)
--- NOTE | 2021-04-06 13:20 | NUR ---
CALL PLACE TO [facility], SPOKE TO ZAYNAB FROM ADMISSION, PER ZAYNAB SHE HAS NOT RECEIVED AN AUTHORIZATION FROM [employer] AND WILL UPDATE US ONCE SHE GET AN AUTHORIZATION.
--- NOTE | 2021-04-06 14:33 | NUR ---
DID ROUNDS ON PT. PT IS IN BED AT THIS TIME. RESPIRATIONS ARE EVEN AND UNLABORED. NO SIGNS OF DISTRESS NOTED. NO COMPLAINTS OF PAIN OR DISCOMFORT. WILL CONTINUE TO MONITOR.
[2021-04-06 16:00] VITALS: BP 108/78
--- NOTE | 2021-04-06 17:01 | NUR ---
PT BLOOD GLUCOSE WAS 93. NO INSULIN COVERAGE NEEDED PER SLIDING SCALE. WILL CONTINUE TO MONITOR.
--- NOTE | 2021-04-06 19:26 | NUR ---
ENDORSED PT TO CAN RECONDITIONER NURSE FOR CONTINUITY OF CARE. PT IS STABLE.
[2021-04-06 20:00] VITALS: BP 113/77
[2021-04-06] MEDS: ATORVASTATIN 20 MG TAB PO SCH (22:23)
[2021-04-06] MEDS: INSULIN LISPRO SLIDING SCALE 100 UNITS/ML VIAL SUBQ PRN (22:42)
[2021-04-07] VITALS: BP 108/60
[2021-04-07] MEDS: BLOOD GLUCOSE MONITORING 1 DEV DEV FS SCH ×4 (06:54→20:35)
--- NOTE | 2021-04-07 07:30 | NUR ---
RECEIVED ENDORSEMENT FROM XEROX MACHINE MECHANIC NURSE FOR CONTINUITY OF CARE. IV SITE ON RFA RODOLFO 20 AND LFA RODOLFO 22 SALINE LOCK. NO SIGN AND SYMPTOMS OF INFECTION.
[2021-04-07 08:00] VITALS: BP 128/76
[2021-04-07 08:16] LABS: PROTHROMBIN TIME 39.4 secs (10.8-13.4)
--- NOTE | 2021-04-07 08:29 | NUR ---
RECEIVED ABNORMAL LAB RESULT OF INR 3.[address] BRAVO
[2021-04-07] MEDS: allopurinoL 100 MG TAB PO SCH (08:34)
[2021-04-07] MEDS: ECOTRIN 81 MG TABEC PO SCH (08:35)
[2021-04-07] MEDS: carvediloL 3.125 MG TAB PO SCH ×2 (08:35→20:30)
[2021-04-07] MEDS: SPIRONOLACTONE 25 MG TAB PO SCH (08:35)
[2021-04-07] MEDS: ENALAPRIL 5 MG TAB PO SCH (08:35)
--- NOTE | 2021-04-07 08:37 | NUR ---
GIVEN ORAL MEDICATION ORDER TOLERATED WELL. DENIES PAIN. SITTING WITH CALL LIGHT WITH IN EASY REACH.
--- NOTE | 2021-04-07 10:30 | NUR ---
PT ON STABLE CONDITION NO DISTRESS. CALL LIGHT WITH IN EASY REACH.
--- NOTE | 2021-04-07 11:32 | NUR ---
LEFT MESSAGE TO DR. JACKSON IF SHE WANT TO RENEW NORCO, HEPARIN DRIP, ATIVAN, AND AMBIEN WAITING FOR RESPONSE.
--- NOTE | 2021-04-07 11:55 | NUR ---
DR. JACKSON RESPONDED IF PT NEEDS THEM BUT PT STATED HE DOESN'T NEED THEM AND TYLENOL IS SUFFICIENT ENOUGH FOR HIS PAIN.
[2021-04-07] MEDS: INSULIN LISPRO SLIDING SCALE 100 UNITS/ML VIAL SUBQ PRN ×2 (12:16→20:42)
--- NOTE | 2021-04-07 14:01 | NUR ---
PT ON BED RESTING NO DISTRESS NOTED. WATCHING TV. CALL LIGHT WITH IN EASY REACH. DENIES CHEST PAIN.
[2021-04-07 16:00] VITALS: BP 96/63
--- NOTE | 2021-04-07 16:30 | NUR ---
BLOOD SUGAR CHECK NO COVERAGE NOTED. PT ASK FOR SNACKS GIVEN CRACKERS AND JUICE. CALL LIGHT WITH IN EASY REACH.
--- NOTE | 2021-04-07 18:21 | NUR ---
PT ON BE WATCHING TV NO DISTRESS NOTED NO COMPLAIN OF CHEST PAIN.
--- NOTE | 2021-04-07 19:18 | NUR ---
ENDORSE TO NAPKIN BAND WRAPPER NURSE FOR CONTINUITY OF CARE.
--- NOTE | 2021-04-07 19:19 | NUR ---
RECD. RESTING IN BED, AWAKE, A/OX4. RESPIRATION EVEN AND UNLABORED. WATCHING TV. IV SALINE LOCK AT THE RIGHT FOREARM G20 AND LEFT FOREARM G22, PATENT AND INTACT. USES THE URINAL BUT ABLE TO AMBULATE WITH ASSISTANCE TO THE BR. USES A WALKER. INSTRUCTED TO CALL NURSE WHEN GETTING OUT OF BED, VERBALIZED UNDERSTANDING. DENIES PAIN 0/10.
--- NOTE | 2021-04-07 20:00 | NUR ---
Patient's Plan of Care was discussed and reviewed with DAY CARE SUPERVISOR: BILLY REDD
[2021-04-07] MEDS: ATORVASTATIN 20 MG TAB PO SCH (20:29)
--- NOTE | 2021-04-07 20:30 | NUR ---
SCHEDULED MEDICATIONS FOR THE NIGHT ADMINISTERED. SNACK GIVEN, ATE 100%.
[2021-04-08] VITALS: BP 115/66
--- NOTE | 2021-04-08 00:30 | NUR ---
STILL WATCHING TV. RESPIRATION EVEN AND UNLABORED. NO COMPLAINT OF PAIN 0/10.
--- NOTE | 2021-04-08 02:00 | NUR ---
SLEEPING COMFORTABLY IN BED. NO DISTRESS NOTED. CALL LIGHT IN REACH.
--- NOTE | 2021-04-08 04:00 | NUR ---
STILL SLEEPING COMFORTABLY, RESPIRATION EVEN AND UNLABORED. CALL LIGHT IN REACH.
--- NOTE | 2021-04-08 06:00 | NUR ---
RESTING IN BED, ABLE TO SLEEP WELL DURING THE NIGHT. NO COMPLAINT OF CHEST PAIN.
[2021-04-08] MEDS: BLOOD GLUCOSE MONITORING 1 DEV DEV FS SCH ×4 (07:09→20:31)
--- NOTE | 2021-04-08 07:35 | NUR ---
CONDITION REMAIN STABLE. ENDORSED TO AM NURSE FOR CONTINUITY OF CARE.
[2021-04-08 08:00] VITALS: BP 115/75
[2021-04-08] MEDS: carvediloL 3.125 MG TAB PO SCH ×2 (09:31→20:31)
[2021-04-08] MEDS: ECOTRIN 81 MG TABEC PO SCH (09:31)
[2021-04-08] MEDS: allopurinoL 100 MG TAB PO SCH (09:31)
[2021-04-08] MEDS: ENALAPRIL 5 MG TAB PO SCH (09:31)
[2021-04-08] MEDS: SPIRONOLACTONE 25 MG TAB PO SCH (09:31)
[2021-04-08 11:54] LABS: BASOPHILS # (AUTO) 0.1 K/uL (0.00-0.22); BASOPHILS % (AUTO) 0.5 % (0.0-2.0); EOSINOPHILS # (AUTO) 0.2 K/uL (0-0.4); EOSINOPHILS % (AUTO) 1.9 % (0.0-4.0); HEMATOCRIT 41.8 % (36-52); LYMPHOCYTES # (AUTO) 2.3 K/uL (2.0-11.5); LYMPHOCYTES % (AUTO) 22.4 % (20.5-51.1); MEAN CORPUSCULAR HEMOGLOBIN 28 pg (27-31); MEAN CORPUSCULAR HGB CONC 34 g/dL (33-37); MEAN CORPUSCULAR VOLUME 84.2 fL (80-94); MONOCYTES # (AUTO) 0.6 K/uL (0.8-1.0); NEUTROPHILS % (AUTO) 69.2 % (42.2-75.2); PLATELET COUNT (AUTO) 278 K/uL (140-450); RED BLOOD CELL COUNT(AUTO) 4.97 MIL/uL (4.20-6.10); RED CELL DISTRIBUTION WIDTH 15.9 % (11.6-13.7); WHITE BLOOD COUNT (AUTO) 10.2 K/uL (4.8-10.8)
[2021-04-08 15:04] LABS: ANION GAP 14.3 (8-16); CARBON DIOXIDE 23.1 mmol/L (21-32); CREATININE 1.1 mg/dL (0.6-1.3); POTASSIUM 4.4 mmol/L (3.5-5.1)
[2021-04-08 15:18] LABS: PROTHROMBIN TIME 23.8 secs (10.8-13.4)
[2021-04-08 16:00] VITALS: BP 102/63
--- NOTE | 2021-04-08 19:50 | NUR ---
ENDORSED TO RAND CEMENTER NURSE FOR CONTINUITY OF CARE.
[2021-04-08] MEDS: ATORVASTATIN 20 MG TAB PO SCH (20:31)
--- NOTE | 2021-04-08 20:31 | NUR ---
SCHEDULED MEDICATIONS FOR THE NIGHT ADMINISTERED. ATE 100% OF SNACK.
[2021-04-08] MEDS: INSULIN LISPRO SLIDING SCALE 100 UNITS/ML VIAL SUBQ PRN (20:50)
[2021-04-09] VITALS: BP 110/59
--- NOTE | 2021-04-09 00:05 | NUR ---
STILL AWAKE, RESTING IN BED, WATCHING TV.
--- NOTE | 2021-04-09 02:00 | NUR ---
SLEEPING COMFORTABLY IN BED, RESPIRATION EVEN AND UNLABORED. CALL LIGHT IN REACH.
--- NOTE | 2021-04-09 04:00 | NUR ---
ON HIS RIGHT SIDE, SLEEPING COMFORTABLY. RESPIRATION EVEN AND UNLABORED.
--- NOTE | 2021-04-09 06:00 | NUR ---
CHECKED PATIENT, STILL SLEEPING COMFORTABLY. NO RESPIRATORY DISTRESS NOTED.
[2021-04-09 06:53] LABS: BASOPHILS % (AUTO) 0.4 % (0.0-2.0); EOSINOPHILS # (AUTO) 0.2 K/uL (0-0.4); EOSINOPHILS % (AUTO) 2.2 % (0.0-4.0); HEMATOCRIT 40.2 % (36-52); HEMOGLOBIN 13.8 g/dL (12.0-18.0); LYMPHOCYTES # (AUTO) 2.4 K/uL (2.0-11.5); LYMPHOCYTES % (AUTO) 24.9 % (20.5-51.1); MEAN CORPUSCULAR HEMOGLOBIN 29 pg (27-31); MEAN CORPUSCULAR HGB CONC 34 g/dL (33-37); MEAN CORPUSCULAR VOLUME 83.2 fL (80-94); MONOCYTES # (AUTO) 0.5 K/uL (0.8-1.0); MONOCYTES % (AUTO) 5.5 % (1.7-9.3); NEUTROPHILS # (AUTO) 6.4 K/uL (1.8-7.7); PLATELET COUNT (AUTO) 302 K/uL (140-450); RED BLOOD CELL COUNT(AUTO) 4.84 MIL/uL (4.20-6.10); RED CELL DISTRIBUTION WIDTH 16.2 % (11.6-13.7); WHITE BLOOD COUNT (AUTO) 9.6 K/uL (4.8-10.8)
[2021-04-09 06:57] LABS: ANION GAP 9.5 (8-16); CARBON DIOXIDE 22.8 mmol/L (21-32); POTASSIUM 4.3 mmol/L (3.5-5.1)
[2021-04-09 07:03] LABS: MAGNESIUM 1.8 mg/dL (1.8-2.4); PHOSPHORUS 3.8 mg/dL (2.5-4.9)
[2021-04-09] MEDS: BLOOD GLUCOSE MONITORING 1 DEV DEV FS SCH ×4 (07:30→17:16)
--- NOTE | 2021-04-09 07:40 | NUR ---
AWAKE IN BED, ABLE TO SLEEP WELL. NO COMPLAINT OF PAIN DURING THE SHIFT.
--- NOTE | 2021-04-09 07:54 | NUR ---
CONDITION REMAIN STABLE. ENDORSED TO AM SHIFT NURSE FOR CONTINUITY OF CARE.
--- NOTE | 2021-04-09 07:55 | NUR ---
RECIVED REPORT FROM PM SHIFT WRECKER OPERATOR, PT. SLEEPING COMFORTABLY, NO S/S OF DISTRESS NOTED. ALL SAFETY MEASURES IN PLACED. WILL CONTINUE TO MONITOR THE PT.
[2021-04-09 08:00] VITALS: BP 104/78
[2021-04-09 08:54] LABS: PROTHROMBIN TIME 20.4 secs (10.8-13.4)
[2021-04-09] MEDS: ECOTRIN 81 MG TABEC PO SCH (10:54)
[2021-04-09] MEDS: ENALAPRIL 5 MG TAB PO SCH (10:54)
[2021-04-09] MEDS: allopurinoL 100 MG TAB PO SCH (10:55)
[2021-04-09] MEDS: carvediloL 3.125 MG TAB PO SCH ×2 (10:55→21:00)
[2021-04-09] MEDS: SPIRONOLACTONE 25 MG TAB PO SCH (10:58)
--- NOTE | 2021-04-09 11:02 | NUR ---
PT. STABLE ,SITTING ON THE CHAIR. NO RESP. DISTRESS ON ROOM AIR. CALL LIGHT WITHIN REACH. WILL CONTINUE TO MONITOR THE PT.
--- NOTE | 2021-04-09 13:25 | NUR ---
04/09/21 RD F/U COMPLETED PLEASE REFER TO NUTRITION ASSESSMENT UNDER CARE ACTIVITY FOR ESTIMATED NUTRITIONAL NEEDS. 1. CONTINUE CARDIAC DIET TOLERATED 2. RD TO FOLLOW-UP 3-5 DAYS, MODERATE RISK REVIEWED BY IGNACIO LAM RD
[2021-04-09 16:00] VITALS: BP 129/79
--- NOTE | 2021-04-09 16:00 | NUR ---
PT. STABLE, RESING COMFORTABLY IN BED. SAFETY MEASURES IN PLACED, WILL CONTINUE TO MONITOR THE PT.
[2021-04-09] MEDS ORDERED: WARFARIN 5 MG TAB PO SCH (17:00)
--- NOTE | 2021-04-09 18:08 | NUR ---
PT. HAS DISCHARGE ORDER. CM IS WORKING FOR PLACEMENT PER CM NOTE.
--- NOTE | 2021-04-09 20:00 | NUR ---
REPORT GIVEN TO HIRA DE LA ROSA RN. PTIke MELLO.
--- NOTE | 2021-04-09 20:01 | NUR ---
RECEIVED REPORT FROM AM NURSE. PATIENT AAOX4. RESTING IN BED COMFORTABLY. NO SOB NOTED. RESPIRATION EVEN UNLABORED. ALL SAFETY PRECAUTIONS ARE IN PLACE. CALL LIGHT WITHIN REACH. NO COMPLAINTS OF PAIN. WILL CONTINUE TO MONITOR.
[2021-04-09] MEDS: ATORVASTATIN 20 MG TAB PO SCH (21:15)
--- NOTE | 2021-04-09 21:15 | NUR ---
ADMINISTERED SCHEDULED MEDS ORDERED.
[2021-04-09] MEDS: INSULIN LISPRO SLIDING SCALE 100 UNITS/ML VIAL SUBQ PRN (21:30)
[2021-04-10] VITALS: BP 100/67
[2021-04-10 06:51] LABS: BASOPHILS % (AUTO) 0.3 % (0.0-2.0); EOSINOPHILS # (AUTO) 0.2 K/uL (0-0.4); EOSINOPHILS % (AUTO) 1.9 % (0.0-4.0); HEMATOCRIT 40.6 % (36-52); HEMOGLOBIN 13.8 g/dL (12.0-18.0); LYMPHOCYTES # (AUTO) 2.2 K/uL (2.0-11.5); LYMPHOCYTES % (AUTO) 22.7 % (20.5-51.1); MEAN CORPUSCULAR HEMOGLOBIN 29 pg (27-31); MEAN CORPUSCULAR HGB CONC 34 g/dL (33-37); MEAN CORPUSCULAR VOLUME 83.9 fL (80-94); MONOCYTES # (AUTO) 0.6 K/uL (0.8-1.0); MONOCYTES % (AUTO) 6.1 % (1.7-9.3); NEUTROPHILS # (AUTO) 6.7 K/uL (1.8-7.7); PLATELET COUNT (AUTO) 323 K/uL (140-450); RED BLOOD CELL COUNT(AUTO) 4.84 MIL/uL (4.20-6.10); WHITE BLOOD COUNT (AUTO) 9.6 K/uL (4.8-10.8)
[2021-04-10 07:24] LABS: ANION GAP 15.8 (8-16); CARBON DIOXIDE 23.6 mmol/L (21-32); CREATININE 1.1 mg/dL (0.6-1.3); POTASSIUM 4.4 mmol/L (3.5-5.1)
--- NOTE | 2021-04-10 07:24 | NUR ---
PHYSICAL THERAPY CO-SIGN The Physical Therapy Progress Notes documented by Patient Care Nursing Assistant have been reviewed. Reviewed/Co-Signed by: Joann Coles Documentation Done by: KIM WHITT PTA Addendum: 04/10/21 at 5920 by Joann Coles PT Amended: Links added.
--- NOTE | 2021-04-10 07:24 | NUR ---
PHYSICAL THERAPY CO-SIGN The Physical Therapy Progress Notes documented by Associate Financial Planner have been reviewed. Reviewed/Co-Signed by: Joann Coles Documentation Done by: KIM WHITT PTA Addendum: 04/10/21 at 5944 by Joann Coels PT Amended: Links added.
[2021-04-10 07:48] LABS: PROTHROMBIN TIME 20.9 secs (10.8-13.4)
[2021-04-10 07:52] LABS: MAGNESIUM 1.8 mg/dL (1.8-2.4); PHOSPHORUS 3.9 mg/dL (2.5-4.9)
[2021-04-10 08:00] VITALS: BP 119/76
--- NOTE | 2021-04-10 08:00 | NUR ---
RECEIVED REPORT FROM PUBLIC HEALTH OFFICER FOR CONTINUITY OF CARE. PATIENT ALERT AWAKE ORIENTED X4, NOT IN ANY DISTRESS NOTED. WITH HEPLOCK DRY AND INTACT. DENIES PAIN AT THIS TIME. FOR POSSIBLE DC TODAY, WAITING FOR THE DOCTOR TO MAKE ROUNDS. NEEDS ATTENDED. WILL CONTINUE TO MONITOR.
[2021-04-10] MEDS: BLOOD GLUCOSE MONITORING 1 DEV DEV FS SCH ×2 (08:04→11:30)
[2021-04-10] MEDS: ENALAPRIL 5 MG TAB PO SCH (09:30)
[2021-04-10] MEDS: ECOTRIN 81 MG TABEC PO SCH (09:31)
[2021-04-10] MEDS: SPIRONOLACTONE 25 MG TAB PO SCH (09:31)
[2021-04-10] MEDS: allopurinoL 100 MG TAB PO SCH (09:31)
[2021-04-10] MEDS: carvediloL 3.125 MG TAB PO SCH (09:31)
--- NOTE | 2021-04-10 10:00 | NUR ---
NOTIFIED PATIENT REGRADING DC ORDER AND MADE AWARE.
--- NOTE | 2021-04-10 10:24 | NUR ---
LATE ENTRY- IV NORMAL SALINE DISCONTINUED AT 0815.
--- NOTE | 2021-04-10 15:00 | NUR ---
REGAN NAVARRO, GOT BUS PASS FROM CONTINUOUS MINER OPERATOR HELPER.
--- NOTE | 2021-04-10 15:40 | NUR ---
DISCHARGE TO HOME WITH DC INSTRUCTION GIVEN AND VERBALIZED UNDERSTANDING. IN STABLE CONDITION.
[2021-04-10] MEDS ORDERED: WARFARIN 5 MG TAB PO SCH (17:00)
== END 2021-04-10 15:57 | disposition home or self-care (01) | DRG 871 ==
LOC: MED 20:17 → MTU 22:46
PROVIDERS: ADMIT Family Medicine; ATTEND Family Medicine
DX: A41.9 Sepsis, unspecified organism (principal); I21.9 Acute myocardial infarction, unspecified; I50.23 Acute on chronic systolic (congestive) heart failure; N39.0 Urinary tract infection, site not specified; I42.9 Cardiomyopathy, unspecified; I24.9 Acute ischemic heart disease, unspecified; M94.0 Chondrocostal junction syndrome [Tietze]; E11.9 Type 2 diabetes mellitus without complications; E78.5 Hyperlipidemia, unspecified; Z20.822 Contact with and (suspected) exposure to COVID-19; I34.0 Nonrheumatic mitral (valve) insufficiency; K21.9 Gastro-esophageal reflux disease without esophagitis; I11.0 Hypertensive heart disease with heart failure; Z88.6 Allergy status to analgesic agent; Z79.899 Other long term (current) drug therapy; Z79.84 Long term (current) use of oral hypoglycemic drugs
CPT/HCPCS: 36415; 71045; 80048; 80053; 80305; 81001; 82150; 82948; 83036; 83690; 83735; 83880; 84100; 84439; 84443; 84484; 85025; 85610; 85730; 87040; 87081; 87086; 93005; 96360; 97110; 97112; 97116; 97530; 99285; J0696; J1644; J1815; J7060

== ENCOUNTER 2021-04-19 16:02 | Emergency (ER) | payer OTHER ==
[~2021-04-19] VITALS: Ht 172.7 cm; Wt 78.9 kg
[~2021-04-19 16:02] MED LIST changes: -ATOR10TA PO; +ATOR20TA PO; +CARV3.12 PO; +FURO-570 PO; +GABA300C PO; +POTA10TA70 PO; +SPIR25TA PO; +WARF-82 PO
[2021-04-19 16:08] VITALS: BP 117/85
[2021-04-19 18:28] LABS: BASOPHILS % (AUTO) 0.4 % (0.0-2.0); EOSINOPHILS # (AUTO) 0.1 K/uL (0-0.4); EOSINOPHILS % (AUTO) 1.9 % (0.0-4.0); HEMATOCRIT 41.7 % (36-52); LYMPHOCYTES # (AUTO) 1.3 K/uL (2.0-11.5); LYMPHOCYTES % (AUTO) 41.9 % (20.5-51.1); MEAN CORPUSCULAR HEMOGLOBIN 28 pg (27-31); MEAN CORPUSCULAR HGB CONC 34 g/dL (33-37); MEAN CORPUSCULAR VOLUME 84.2 fL (80-94); MONOCYTES # (AUTO) 0.3 K/uL (0.8-1.0); MONOCYTES % (AUTO) 8.6 % (1.7-9.3); NEUTROPHILS # (AUTO) 1.5 K/uL (1.8-7.7); NEUTROPHILS % (AUTO) 47.2 % (42.2-75.2); PLATELET COUNT (AUTO) 162 K/uL (140-450); RED BLOOD CELL COUNT(AUTO) 4.95 MIL/uL (4.20-6.10); WHITE BLOOD COUNT (AUTO) 3.2 K/uL (4.8-10.8)
[2021-04-19 19:03] LABS: ALBUMIN 3.7 g/dL (3.4-5.0); ANION GAP 14.7 (8-16); CARBON DIOXIDE 25.7 mmol/L (21-32); CREATININE 1.1 mg/dL (0.6-1.3); POTASSIUM 4.4 mmol/L (3.5-5.1); TOTAL BILIRUBIN 0.5 mg/dL (0.0-1.0)
[2021-04-19 19:19] LABS: PROTHROMBIN TIME 10.2 secs (10.8-13.4)
[2021-04-19 20:27] VITALS: BP 136/93
[2021-04-19] MEDS ORDERED: SPIR50TA PO (21:25)
[2021-04-19] MEDS ORDERED: ASPI81CT51 PO (21:27)
[2021-04-19] MEDS ORDERED: ATOR20TA PO (21:27)
[2021-04-19] MEDS ORDERED: CARV3.12 PO (21:29)
[2021-04-19] MEDS ORDERED: ENAL-197 PO (21:30)
[2021-04-19] MEDS ORDERED: FURO-570 PO (21:31)
[2021-04-19] MEDS ORDERED: METO25TA PO (21:32)
[2021-04-19] MEDS ORDERED: METF-350 PO (21:32)
[2021-04-19] MEDS ORDERED: POTA10TA70 PO (21:33)
--- NOTE | 2021-04-19 21:51 | NUR ---
Patient discharged with v/s stable. Written and verbal after care instructions given and explained. Patient alert, oriented and verbalized understanding of instructions. Ambulatory with steady gait. All questions addressed prior to discharge. ID band removed. Patient advised to follow up with PMD. Rx of ASPRIN, COREG, LASIX, VASOTEC,METFORMIN, K-DUR, SPIRONOLACTONE, ATORVASTATIN, LOPRESSOR given. Patient educated on indication of medication including possible reaction and side effects. Opportunity to ask questions provided and answered.
[2021-04-20 03:36] LABS: MAGNESIUM 1.7 mg/dL (1.8-2.4); PHOSPHORUS 3.7 mg/dL (2.5-4.9)
== END 2021-04-19 21:51 | disposition home or self-care (01) ==
LOC: MED 16:02
DX: R07.89 Other chest pain (principal); I10 Essential (primary) hypertension; Z79.899 Other long term (current) drug therapy; Z79.82 Long term (current) use of aspirin; Z88.6 Allergy status to analgesic agent
CPT/HCPCS: 36415; 71045; 80053; 83735; 83880; 84100; 84484; 85025; 85610; 85730; 93005; 99285